=== PATIENT | male | born 1940 | race Caucasian/White ===

== ENCOUNTER 2018-08-08 15:18 | Observation (INO) | payer MEDICARE, OTHER ==
[2018-08-08 15:47] LABS: BASOPHILS # (AUTO) 0.1 10^3/uL (0.0-0.1); BASOPHILS % (AUTO) 0.7 %; EOSINOPHILS # (AUTO) 0.2 10^3/uL (0.0-0.7); EOSINOPHILS % (AUTO) 3.1 %; HGB - HEMOGLOBIN 14.8 g/dL (14.0-18.0); LYMPHOCYTES % (AUTO) 37.4 %; MEAN CORPUSCULAR HEMOGLOBIN 33.4 pg (27.0-31.0); MEAN CORPUSCULAR VOLUME 95.6 fL (80.0-94.0); MEAN PLATELET VOLUME 9.5 fL (7.4-11.4); MONOCYTES # (AUTO) 0.6 10^3/uL (0.0-1.0); MONOCYTES % (AUTO) 7.5 %; NEUTROPHILS # (AUTO) 4.1 10^3/uL (1.5-6.6); NEUTROPHILS % (AUTO) 51.3 %; PLT - PLATELET COUNT 161 10^3/uL (130-450); RED BLOOD COUNT 4.44 10^6/uL (4.70-6.10); RED CELL DISTRIBUTION WIDTH 13.8 % (12.0-15.0)
[2018-08-08 15:59] LABS: ALBUMIN 3.9 g/dL (3.2-5.5); ALBUMIN/GLOBULIN RATIO 1.3 (1.0-2.2); BILIRUBIN,TOTAL 1.7 mg/dL (0.2-1.0); CALCIUM 8.9 mg/dL (8.5-10.3); CREATININE 1.3 mg/dL (0.6-1.2); TOTAL PROTEIN 6.9 g/dL (6.7-8.2)
--- NOTE | 2018-08-08 15:59 | XRAY Report ---
Reason: chest pain Procedure Date: 08/08/2018 Accession Number: [id number] / [id number] Procedure: XR - Chest 2 View X-Ray CPT Code: 37293 FULL RESULT: EXAM: CHEST RADIOGRAPHY EXAM DATE: 08/08/2018 03:48 PM. CLINICAL HISTORY: Chest pain. COMPARISON: Chest radiograph dated 10/27/2013. TECHNIQUE: 2 views. FINDINGS: Lungs/Pleura: No focal opacities evident. No pleural effusion. No pneumothorax. Normal volumes. Mediastinum: Heart and mediastinal contours are unremarkable. Other: None. IMPRESSION: No focal consolidation. RADIA
--- NOTE | 2018-08-08 15:59 | ED Physician Documentation ---
PD HPI CHEST PAIN - Stated complaint Stated Complaint: CP/L ARM PX - Chief complaint Chief Complaint: Cardiac - History obtained from History obtained from: Patient - History of Present Illness Timing - onset: Yesterday (chest pains intermittent the past 2-3 days, more consistent since this morning. ccurring at rest, not exertional. Not pleuritic. In left chest, going to left shoulder.) Timing - onset during: Rest Timing - details: Gradual onset, Still present, Waxing and waning Quality: Pressure, Tightness, Aching. No: Sharp, Tearing Location: Left chest Radiation: Left upper extremity Improved by: No: Rest Worsened by: No: Exertion, Inspiration, Movement, Palpation Associated symptoms: No: Shortness of air, Diaphoresis, Nausea, Feeling faint / dizzy, Palpitations Similar symptoms before: Has not had sx before (He says he has a history of heart disease in the past and had seen a appeals and generalist clerk before moving here. He had been followed with echocardiograms. He denies any prior heart cath. He does not have any stents. He denies any chest pain episodes previously.) Recently seen: Not recently seen Review of Systems Constitutional: denies: Fever, Chills, Myalgias Nose: denies: Rhinorrhea / runny nose, Congestion Throat: denies: Sore throat Cardiac: reports: Chest pain / pressure. denies: Palpitations, Pedal edema, Calf pain Respiratory: denies: Dyspnea, Cough, Wheezing GI: denies: Abdominal Pain, Nausea, Vomiting Skin: denies: Rash, Lesions Musculoskeletal: denies: Neck pain, Back pain Neurologic: reports: Generalized weakness. denies: Focal weakness, Numbness, Near syncope PD PAST MEDICAL HISTORY - Past Medical History Cardiovascular: Hypertension, High cholesterol, Coronary artery disease (with prior ECHOs every year, but denies having had heart cath nor stents. ) Endocrine/Autoimmune: Type 2 diabetes - Past Surgical History Past Surgical History: Yes General: Appendectomy, Hiatal hernia repair Ortho: Spine surgery - Present Medications Home Medications: Ambulatory Orders Medication Instructions Recorded Confirmed Atorvastatin Calcium [Lipitor] 40 mg PO QPM 10/27/13 08/08/18 Carvedilol [Coreg] 25 mg PO BID 10/27/13 08/08/18 glipiZIDE [Glucotrol] 5 mg PO 0730,1630 10/27/13 08/08/18 Albuterol Sulfate [Proair Hfa 2 puffs INH Q4H PRN 08/08/18 08/08/18 Inhaler] Lisinopril/Hydrochlorothiazide 1 tab PO DAILY 08/08/18 08/08/18 [Lisinopril-Hctz 20-12.5 mg Tab] - Allergies Allergies/Adverse Reactions: Allergies Allergy/AdvReac Type Severity Reaction Status Date / Time No Known Drug Allergies Allergy Verified 08/08/18 15:23 - Social History Does the pt smoke?: No Smoking Status: Never smoker Does the pt drink ETOH?: No Does the pt have substance abuse?: No - Family History Family history: reports: Non contributory - Immunizations Immunizations are current?: Yes - POLST Patient has POLST: No PD ED PE NORMAL - Vitals Vital signs reviewed: Yes - General General: Alert and oriented X 3, No acute distress, Well developed/nourished - HEENT HEENT: Pharynx benign - Neck Neck: Supple, no meningeal sign, No adenopathy - Cardiac Cardiac: RRR, No murmur - Respiratory Respiratory: Clear bilaterally - Abdomen Abdomen: Normal bowel sounds, Soft, Non tender - Male Male : Deferred - Rectal Rectal: Deferred - Back Back: No CVA TTP - Derm Derm: Normal color, Warm and dry - Extremities Extremities: No deformity, No tenderness to palpate, Normal ROM s pain, No calf tenderness / cord, Other (1+ edema in both legs) - Neuro Neuro: Alert and oriented X 3 Eye Opening: Spontaneous Motor: Obeys Commands Results - Vitals Vitals: Vital Signs - 24 hr 08/08/18 08/08/18 08/08/18 15:21 15:57 16:55 Temperature 36.9 C Heart Rate 62 62 62 Respiratory 22 14 16 Rate Blood Pressure 143/65 H 143/81 H 160/88 H O2 Saturation 97 98 99 08/08/18 17:01 Temperature Heart Rate 68 Respiratory 16 Rate Blood Pressure 121/72 O2 Saturation 97 Oxygen O2 Source Room air - EKG (time done) 15:29 Rate: Rate (enter#) (60) Rhythm: NSR [place]: Normal Intervals: Normal MD QRS: Normal Ischemia: Normal ST segments. No: ST elevation c/w ischemia, ST depression - Labs Labs: Laboratory Tests 08/08/18 08/08/18 08/08/18 15:30 15:30 15:30 WBC 8.0 RBC 4.44 L Hgb 14.8 Hct 42.5 MCV 95.6 H MCH 33.4 H MCHC 35.0 RDW 13.8 Plt Count 161 MPV 9.5 Neut # (Auto) 4.1 Lymph # (Auto) 3.0 [place] # (Auto) 0.6 Eos # (Auto) 0.2 Baso # (Auto) 0.1 Absolute Nucleated RBC 0.00 Nucleated RBC % 0.0 Sodium 134 L Potassium 3.8 Chloride 102 Carbon Dioxide 27 Anion Gap 5.0 L BUN 24 H Creatinine 1.3 H Estimated GFR (MDRD) 54 L Glucose 100 Calcium 8.9 Total Bilirubin 1.7 H AST 29 ALT 30 Alkaline Phosphatase 86 Troponin I < 0.04 B-Natriuretic Peptide Total Protein 6.9 Albumin 3.9 Globulin 3.0 Albumin/Globulin Ratio 1.3 Lipase 28 08/08/18 15:30 WBC RBC Hgb Hct MCV MCH MCHC RDW Plt Count MPV Neut # (Auto) Lymph # (Auto) [place] # (Auto) Eos # (Auto) Baso # (Auto) Absolute Nucleated RBC Nucleated RBC % Sodium Potassium Chloride Carbon Dioxide Anion Gap BUN Creatinine Estimated GFR (MDRD) Glucose Calcium Total Bilirubin AST ALT Alkaline Phosphatase Troponin I B-Natriuretic Peptide 26 Total Protein Albumin Globulin Albumin/Globulin Ratio Lipase - Rads (name of study) chest xray Radiology: Prelim report reviewed PD MEDICAL DECISION MAKING - ED course Complexity details: reviewed results, re-evaluated patient (improved with NTG; had had just mild pain here initially and feels better.), considered differential (concern about ACS with chest pains episodic for few days then steady since late morning. ), d/w patient - Sepsis Event Vital Signs: Vital Signs - 24 hr 08/08/18 08/08/18 08/08/18 15:21 15:57 16:55 Temperature 36.9 C Heart Rate 62 62 62 Respiratory 22 14 16 Rate Blood Pressure 143/65 H 143/81 H 160/88 H O2 Saturation 97 98 99 08/08/18 17:01 Temperature Heart Rate 68 Respiratory 16 Rate Blood Pressure 121/72 O2 Saturation 97 Oxygen O2 Source Room air Departure - Departure Disposition: ED Place in Observation Clinical Impression: Chest pain, rule out acute myocardial infarction Condition: Stable Record reviewed to determine appropriate education?: Yes Discharge Date/Time: 08/08/18 18:45
[2018-08-08] MEDS ORDERED: NITROGLYCERIN SL 0.4 MG TABLET SL STA (16:48)
[2018-08-08] MEDS ORDERED: ASPIRIN CHEW 81 MG TABLET PO STA (16:48)
[2018-08-08] MEDS ORDERED: ACETAMINOPHEN 325 MG TABLET PO STA (16:48)
[2018-08-08] MEDS ORDERED: KETOROLAC 15 MG/ML VIAL IVP STA (16:48)
[2018-08-08] MEDS ORDERED: ONDANSETRON 4 MG/2 ML VIAL IVP PRN (17:37)
[2018-08-08] MEDS ORDERED: MORPHINE 2 MG/ML CARPUJECT IVP PRN (17:37)
[2018-08-08] MEDS ORDERED: NITROGLYCERIN SL 0.4 MG TABLET SL PRN (17:37)
[2018-08-08] MEDS ORDERED: SODIUM CHLORIDE FLUSH 0.9% 10 ML SYRINGE IVP PRN (17:37)
[2018-08-08] MEDS ORDERED: ZOLPIDEM 5 MG TABLET PO PRN (17:37)
[2018-08-08] MEDS ORDERED: ACETAMINOPHEN 325 MG TABLET PO PRN (17:37)
--- NOTE | 2018-08-08 17:43 | HISTORY & PHYSICAL EXAMINATION ---
Chief Complaint - Chief Complaint Chief Complaint: Chest pain History of Present Illness - Admitted From Admitted From:: Emergency Department - History Obtained From Records Reviewed: Yes History obtained from: Patient Exam Limitations: None - History of Present Illness HPI Comment/Other: Patient is a 77-year-old gentleman with a past medical history significant for diabetes, hypertension, hyperlipidemia, glaucoma and obesity who presented to the emergency department with a chief complaint of chest pain. The patient st ates that the chest pain initially started yesterday evening. The patient states that he was having left-sided chest pain radiating down his left arm. He states that it would only last for 2 or 3 minutes and then resolve on its own. He states he had 4 episodes of pain like this yesterday evening but since it resolved he did not make too much of it. He states that he woke up this morning and he did not have any chest pain until around 11:30 AM. He states that that time he began having a similar pain in the left side of his chest radiating down his left arm. He states initially the pain resolved but then started up again every 5 minutes and then lasted for a few minutes and would resolve. Eventually the pain became persistent and was not going away on its own. At this point the patient became concerned and decided to come to the emergency department. The patient denies any nausea or diaphoresis associated to the pain. Patient did not take anything before arriving to the emergency department for the pain. The patient does state that once he got to the emergency department that the nitroglycerin and aspirin did help his pain. The patient also states he has been having a headache and has history of neck pain. The patient denies any palpitations or shortness of breath. He describes the pain as a mild pressure which is about a 3 out of 10 on the pain scale. The patient has had a stress test here at [facility] in 2013 which was negative. The patient has no history of coronary artery disease and no family history of coronary artery disease. The patient is a non-smoker. The patient denies any blurred vision, runny nose, sore throat, nasal conges tion, difficulty swallowing, orthopnea, PND, increased lower extremity swelling, joint pain, urinary urgency, urinary frequency, dysuria, abdominal pain, nausea, vomiting, diarrhea, cough, fevers, chills, neck stiffness, recent unintentional weight loss, changes in his appetite, night sweats, hair loss, skin rash, polyuria, polydipsia or any focal neurologic deficits. On presentation to the emergency department the patient was afebrile and slightly hypertensive otherwise vital signs were within normal limits. The patient initially was underwent an EKG the EKG showed no ST elevation and no is chemic changes. The patient underwent routine lab work including troponin which was negative. The patient did have a slightly elevated creatinine of 1.3 which was near his baseline of 1.2. The patient also had a mild hyponatremia. The patient's BNP was 26. Patient had no leukocytosis. The patient did undergo a chest x-ray which showed no focal consolidation. Given the patient's risk factors he was placed in observation for rule out of acute coronary syndrome. History - Past Medical History Cardiovascular: reports: Hypertension, High cholesterol, Other (Obesity) Endocrine/Autoimmune: reports: Type 2 diabetes HEENT: reports: Glaucoma - Past Surgical History General: reports: Appendectomy, Hiatal hernia repair Ortho: reports: Spine surgery - Family & Social History Family History: Mother: (Patient's father of liver failure and mother of breast cancer), Cancer (Breast cancer), Father: , Other family: Diabetes, Type 2 (Both grandmothers had diabetes) Living arrangement: At home Living Situation: Alone Social History Notes: The patient lives alone in [place]. He is . He is originally from [place] and moved would be [place] in 2011. He has 1 son who also lives in [place]. He is fully independent and still drives he does use a cane at home. 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 The patient has a masters degree. He has never smoked, does not drink alcohol and denies any illicit drug use. - POLST Patient has POLST: No POLST Status: Full Code Meds/Allgy - Home Medications Home Medications: Ambulatory Orders Medication Instructions Recorded Confirmed Atorvastatin Calcium [Lipitor] 40 mg PO QPM 10/27/13 08/08/18 Carvedilol [Coreg] 25 mg PO BID 10/27/13 08/08/18 glipiZIDE [Glucotrol] 5 mg PO 0730,1630 10/27/13 08/08/18 Albuterol Sulfate [Proair Hfa 2 puffs INH Q4H PRN 08/08/18 08/08/18 Inhaler] Lisinopril/Hydrochlorothiazide 1 tab PO DAILY 08/08/18 08/08/18 [Lisinopril-Hctz 20-12.5 mg Tab] - Allergies Allergies/Adverse Reactions: Allergies Allergy/AdvReac Type Severity Reaction Status Date / Time No Known Drug Allergies Allergy Verified 08/08/18 15:23 Review of Systems - Other Findings Other Findings: A comprehensive review of systems was performed the pertinent positives and negatives are stated above in the HPI and the remainder of the review of systems is negative. Prior Level of Functionality: Patient is fully functioning and independent. He does use a cane at home but otherwise is still driving, cooking for himself, paying his own bills but does get help cleaning the house. Exam - Vital Signs Reviewed Vital Signs: Yes Vital Signs: Vital Signs x48h Temp Pulse Resp BP Pulse Ox 08/08/18 17:01 68 16 121/72 97 08/08/18 16:55 62 16 160/88 H 99 08/08/18 15:57 62 14 143/81 H 98 08/08/18 15:21 36.9 C 62 22 143/65 H 97 - Physical Exam General Appearance: positive: No acute distress, Alert Eyes Bilateral: positive: Normal inspection, PERRL, EOMI, No lid inflammation, Conjunctivae nml, No scleral icterus ENT: positive: ENT inspection nml, Pharynx nml, No signs of dehydration. negative: Purulent nasal drainage, Pharyngeal erythema, Oral lesions Neck: positive: Nml inspection, Thyroid nml, No JVD, Trachea midline. negative: Lymphadenopathy (R), Lymphadenopathy (L), Stiff neck, Carotid bruit, Tracheal deviation Respiratory: positive: Chest non-tender, No respiratory distress, Breath sounds nml. negative: Wheezes, Rales, Rhonchi Cardiovascular: positive: Regular rate & rhythm, No murmur, No gallop Peripheral Pulses: positive: 2+ Abdomen: positive: Non-tender, No organomegaly, Nml bowel sounds, No distention. negative: Guarding, Rebound, Hepatomegaly Back: positive: Nml inspection. negative: CVA tenderness (R), CVA tenderness (L) Skin: positive: Color nml, No rash, Warm, Dry. negative: Cyanosis, Diaphoresis, Pallor Extremities: positive: Non-tender, Full ROM, Nml appearance, No pedal edema Neurologic/Psychiatric: positive: Oriented x3, CN's nml (2-12), Motor nml, Sensation nml, Mood/affect nml Conclusion/Plan - Problem List (1) Chest pain Conclusion/Plan: Patient presented with left-sided chest pain that was going on off and on since yesterday and then became persistent earlier this afternoon. It was radiating to the left arm. The patient had no associated nausea, diaphoresis, shortness of breath or palpitations. Patient's pain was relieved by aspirin and nitroglycerin in the emergency department. The pain did occur at rest. The patient's initial EKG and troponin were negative. Given the patient's risk factors of diabetes, age, hypertension, hyperlipidemia and obesity the patient was placed in observation for acute coronary syndrome rule out. Plan: Serial troponins x3 Telemetry monitoring Nitroglycerin when necessary for chest pain Aspirin Lipitor Echo If patient does rule out we would recommend an outpatient stress test given his risk factors. (2) Hypertension Conclusion/Plan: Patient is a history of hypertension and on presentation to the emergency department the patient's blood pressure is slightly elevated. The patient will be continued on his home antihypertensive medications. We will continue to mo nitor his blood pressure and titrate medications as needed. Qualifiers: Hypertension type: essential hypertension Qualified Code(s): I10 - Essen tial (primary) hypertension (3) Hyperlipidemia Conclusion/Plan: Patient has a history of hyperlipidemia and takes a statin at home. Patient will be continued on statin while he is hospitalized. We will check a lipid profile in the morning. Qualifiers: Hyperlipidemia type: unspecified Qualified Code(s): E78.5 - Hyperlipidemia, unspecified (4) Diabetes mellitus Conclusion/Plan: Patient has a history of diabetes and is on glipizide at home. Patient's blood glucose is well controlled on presentation to the emergency department. Plan: Patient will be placed on sliding scale insulin Diabetic diet Hemoglobin A1c Check blood glucose before meals at bedtime Qualifiers: Diabetes mellitus type: type 2 Diabetes mellitus senior care insulin use: without superintendent container terminal use Diabetes mellitus complication status: without complication Qualified Code(s): E11.9 - Type 2 diabetes mellitus without complications (5) Hyponatremia Conclusion/Plan: Patient has mild hyponatremia with a sodium of 134. Patient appears to have hypovolemic hyponatremia. Patient's BUN and creatinine are also slightly elevated. We will give the patient IV fluids and monitor his sodium. (6) Elevated bilirubin Conclusion/Plan: Patient has a mildly elevated bilirubin of 1.7. Looking back at his labs from 2012 his bilirubin was 1.7 then as well. Given the patient's LFTs are otherwise normal and he is not having any symptoms to suggest liver disease we will just monitor his bilirubin. - Lab Results Lab results reviewed: Yes Fish Bones: 08/08/18 15:30 08/08/18 15:30 Other Lab Results: Laboratory Results WBC 8.0 x10^3/uL (4.8-10.8) 08/08/18 15:30 RBC 4.44 10^6/uL (4.70-6.10) L 08/08/18 15:30 Hgb 14.8 g/dL (14.0-18.0) 08/08/18 15:30 Hct 42.5 % (42.0-52.0) 08/08/18 15:30 MCV 95.6 fL (80.0-94.0) H 08/08/18 15:30 MCH 33.4 pg (27.0-31.0) H 08/08/18 15:30 MCHC 35.0 g/dL (32.0-36.0) 08/08/18 15:30 RDW 13.8 % (12.0-15.0) 08/08/18 15:30 Plt Count 161 10^3/uL (130-450) 08/08/18 15:30 MPV 9.5 fL (7.4-11.4) 08/08/18 15:30 Neut # (Auto) 4.1 10^3/uL (1.5-6.6) 08/08/18 15:30 Lymph # (Auto) 3.0 10^3/uL (1.5-3.5) 08/08/18 15:30 [place] # (Auto) 0.6 10^3/uL (0.0-1.0) 08/08/18 15:30 Eos # (Auto) 0.2 10^3/uL (0.0-0.7) 08/08/18 15:30 Baso # (Auto) 0.1 10^3/uL (0.0-0.1) 08/08/18 15:30 Absolute Nucleated RBC 0.00 x10^3/uL 08/08/18 15:30 Nucleated RBC % 0.0 /100WBC 08/08/18 15:30 Sodium 134 mmol/L (135-145) L 08/08/18 15:30 Potassium 3.8 mmol/L (3.5-5.0) 08/08/18 15:30 Chloride 102 mmol/L (101-111) 08/08/18 15:30 Carbon Dioxide 27 mmol/L (21-32) 08/08/18 15:30 Anion Gap 5.0 (6-13) L 08/08/18 15:30 BUN 24 mg/dL (6-20) H 08/08/18 15:30 Creatinine 1.3 mg/dL (0.6-1.2) H 08/08/18 15:30 Estimated GFR (MDRD) 54 (>89) L 08/08/18 15:30 Glucose 100 mg/dL (70-100) 08/08/18 15:30 Calcium 8.9 mg/dL (8.5-10.3) 08/08/18 15:30 Total Bilirubin 1.7 mg/dL (0.2-1.0) H 08/08/18 15:30 AST 29 IU/L (10-42) 08/08/18 15:30 ALT 30 IU/L (10-60) 08/08/18 15:30 Alkaline Phosphatase 86 IU/L (42-121) 08/08/18 15:30 Troponin I < 0.04 ng/mL (<0.49) 08/08/18 15:30 B-Natriuretic Peptide 26 pg/mL (5-100) 08/08/18 15:30 Total Protein 6.9 g/dL (6.7-8.2) 08/08/18 15:30 Albumin 3.9 g/dL (3.2-5.5) 08/08/18 15:30 Globulin 3.0 g/dL (2.1-4.2) 08/08/18 15:30 Albumin/Globulin Ratio 1.3 (1.0-2.2) 08/08/18 15:30 Lipase 28 U/L (22-51) 08/08/18 15:30 - Diagnostic Imaging Results Diagnostic Imaging Results: positive: Final report reviewed Diagnostic Imaging Results Comments: Chest x-ray Impression: No focal consolidation - EKG Results EKG Interpreted Independently: Yes EKG Findings: No ST elevations or ischemic changes noted on EKG. Core Measures - Anticipated LOS I expect patient to be DC'd or transferred within 96 hours.: Yes - DVT/VTE - Prophylaxis VTE/DVT Prophylaxis med ordered at admit?: Yes
[2018-08-08] MEDS: SODIUM CHLORIDE FLUSH 0.9% 10 ML SYRINGE IVP SCH (19:32)
[2018-08-08] MEDS: SODIUM CHLORIDE 0.9% 1,000 ML IV SCH (19:33)
[2018-08-08] MEDS: CARVEDILOL 12.5 MG TABLET PO SCH (20:48)
[2018-08-08] MEDS: HEPARIN 5,000 UNIT/ML VIAL SUBQ SCH (20:49)
[2018-08-08] MEDS ORDERED: ATORVASTATIN 40 MG TABLET PO SCH (21:00)
[2018-08-08] MEDS: INSULIN ASPART 300 UNIT/3 ML PEN SUBQ SCH (21:18)
[2018-08-09 05:07] LABS: BASOPHILS # (AUTO) 0.1 10^3/uL (0.0-0.1); EOSINOPHILS # (AUTO) 0.2 10^3/uL (0.0-0.7); HGB - HEMOGLOBIN 13.3 g/dL (14.0-18.0); LYMPHOCYTES # (AUTO) 2.7 10^3/uL (1.5-3.5); LYMPHOCYTES % (AUTO) 40.9 %; MEAN CORPUSCULAR HEMOGLOBIN 33.3 pg (27.0-31.0); MEAN CORPUSCULAR VOLUME 95.3 fL (80.0-94.0); MEAN PLATELET VOLUME 9.7 fL (7.4-11.4); MONOCYTES # (AUTO) 0.5 10^3/uL (0.0-1.0); MONOCYTES % (AUTO) 8.3 %; NEUTROPHILS # (AUTO) 3.1 10^3/uL (1.5-6.6); NEUTROPHILS % (AUTO) 46.8 %; PLT - PLATELET COUNT 144 10^3/uL (130-450); RED CELL DISTRIBUTION WIDTH 13.5 % (12.0-15.0); WHITE BLOOD COUNT 6.6 x10^3/uL (4.8-10.8)
[2018-08-09 05:19] LABS: ALBUMIN 3.1 g/dL (3.2-5.5); ALBUMIN/GLOBULIN RATIO 1.3 (1.0-2.2); ALKALINE PHOSPHATASE 65 IU/L (42-121); ALT ALANINE AMINOTRANSFERASE 26 IU/L (10-60); AST ASPARTATE AMINOTRANSFERASE 24 IU/L (10-42); BILIRUBIN,TOTAL 1.5 mg/dL (0.2-1.0); BUN - BLOOD UREA NITROGEN 26 mg/dL (6-20); CALCIUM 8.1 mg/dL (8.5-10.3); CARBON DIOXIDE - CO2 25 mmol/L (21-32); CHLORIDE 104 mmol/L (101-111); CHOL/HDL RATIO 4.5 (<5.0); CHOLESTEROL 104 mg/dL; CREATININE 1.4 mg/dL (0.6-1.2); GFR - MDRD 49 (>89); GLUCOSE 111 mg/dL (70-100); HDL CHOLESTEROL 23 mg/dL; LDL CHOLESTEROL,CALCULATED 60 mg/dL; LDL/HDL RATIO 2.6 (<3.6); SODIUM 135 mmol/L (135-145); TOTAL PROTEIN 5.5 g/dL (6.7-8.2); VLDL CHOLESTEROL 21 mg/dL
[2018-08-09] MEDS: SODIUM CHLORIDE 0.9% 1,000 ML IV SCH (05:45)
[2018-08-09 05:53] LABS: HB2 TOTAL 13.9 g/dL; HEMOGLOBIN A1C 0.63 g/dL; HEMOGLOBIN A1C % 6.3 % (4.6-6.2)
[2018-08-09] MEDS: INSULIN ASPART 300 UNIT/3 ML PEN SUBQ SCH (08:29)
[2018-08-09] MEDS: CARVEDILOL 12.5 MG TABLET PO SCH (08:29)
[2018-08-09] MEDS: HEPARIN 5,000 UNIT/ML VIAL SUBQ SCH (08:29)
[2018-08-09] MEDS: SODIUM CHLORIDE FLUSH 0.9% 10 ML SYRINGE IVP SCH (08:30)
[2018-08-09] MEDS ORDERED: LISINOPRIL PO SCH (09:00)
[2018-08-09] MEDS ORDERED: HYDROCHLOROTHIAZIDE PO SCH (09:00)
[2018-08-09] MEDS ORDERED: FAMOTIDINE 20 MG TABLET PO SCH (09:00)
[2018-08-09] MEDS ORDERED: POLYETHYLENE GLYCOL 3350 17 GM PACKET PO SCH (09:00)
[2018-08-09] MEDS ORDERED: ASPIRIN EC 81 MG TABLET PO SCH (09:00)
[2018-08-09] MEDS ORDERED: [UNRECOGNIZED DRUG - OTHER] PO SCH (09:00)
[2018-08-09 09:49] VITALS: BP 115/60
--- NOTE | 2018-08-09 10:29 | Discharge Plan ---
Discharge Plan Disposition: 01 Home, Self Care Condition: Stable Diet: Diabetic Activity Restrictions: Activity as Tolerated Shower Restrictions: No Driving Restrictions: No Assistance Devices: Cane Weight Bearing: Full Weight Additional Instructions or Follow Up instructions: You came to the emergency department because you were having left-sided chest pain that was radiating into her left arm. It has been ongoing since the day prior to ER presentation to the ER. While you were here we performed an EKG, an echocardiogram and did blood work which all determined that you are not having an acute heart attack. You will be safe to go home at this time. I recommend that you follow-up with your primary care physician and get a stress test. 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 No Smoking: If you smoke, Please STOP! Call for help. Follow-up with: Jordin Wheeler MD [Primary Care Provider] -
--- NOTE | 2018-08-09 10:34 | DISCHARGE SUMMARY ---
Discharge Summary Admit Date: 08/08/18 Discharge Date: 08/09/18 Discharging Provider: Gwyn Kim MD Primary Care Provider: Jordin Wheeler MD Code Status: Attempt Resuscitation Condition at Discharge: Stable Discharge Disposition: 01 Home, Self Care - DIAGNOSES Admission Diagnoses: 1. Chest pain 2. Hypertension 3. Hyperlipidemia 4. Diabetes mellitus 5. Hyponatremia 6. Elevated bilirubin Discharge Diagnoses with Status of Each Condition: 1. Chest pain: Resolved 2. Hypertension: Stable 3. Hyperlipidemia: Stable 4. Diabetes mellitus: Stable 5. Hyponatremia: Resolved 6. Elevated bilirubin: Stable - HPI History of Present Illness: Patient is a 77-year-old gentleman with a past medical history significant for diabetes, hypertension, hyperlipidemia, glaucoma and obesity who presented to the emergency department with a chief complaint of chest pain. The patient states that the chest pain initially started yesterday evening. The patient states that he was having left-sided chest pain radiating down his left arm. He states that it would only last for 2 or 3 minutes and then resolve on its own. He states he had 4 episodes of pain like this yesterday evening but since it resolved he did not make too much of it. He states that he woke up this morning and he did not have any chest pain until around 11:30 AM. He states that that time he began having a similar pain in the left side of his chest radiating down his left arm. He states initially the pain resolved but then started up again every 5 minutes and then lasted for a few minutes and would resolve. Eventually the pain became persistent and was not going away on its own. At this point the patient became concerned and decided to come to the emergency department. The patient denies any nausea or diaphoresis associated to the pain. Patient did not take anything before arriving to the emergency department for the pain. The patient does state that once he got to the emergency department that the ni troglycerin and aspirin did help his pain. The patient also states he has been having a headache and has history of neck pain. The patient denies any palpitations or shortness of breath. He describes the pain as a mild pressure which is about a 3 out of 10 on the pain scale. The patient has had a stress test here at [facility] in 2013 which was negative. The patient has no history of coronary artery disease and no family history of coronary artery disease. The patient is a non-smoker. The patient denies any blurred vision, runny nose, sore throat, nasal congestion, difficulty swallowing, orthopnea, PND, increased lower extremity swelling, joint pain, urinary urgency, urinary frequency, dysuria, abdominal pain, nausea, vomiting, diarrhea, cough, fevers, chills, neck stiffness, recent unintentional weight loss, changes in his appetite, night sweats, hair loss, ski n rash, polyuria, polydipsia or any focal neurologic deficits. On presentation to the emergency department the patient was afebrile and slightly hypertensive otherwise vital signs were within normal limits. The patient initially was underwent an EKG the EKG showed no ST elevation and no ischemic changes. The patient underwent routine lab work including troponin which was negative. The patient did have a slightly elevated creatinine of 1.3 which was near his baseline of 1.2. The patient also had a mild hyponatremia. The patient's BNP was 26. Patient had no leukocytosis. The patient did undergo a chest x-ray which showed no focal consolidation. Given the patient's risk factors he was placed in observation for rule out of acute coronary syndrome. - HOSPITAL COURSE Hospital Course: Patient was placed in observation and underwent telemetry monitoring and serial troponins. The patient had 3 negative troponins. The patient's chest pain resolved and he had no further occurrences of chest pain while he was hospitalized. The patient also had an echocardiogram done which showed no wall motion abnormality and a normal ejection fraction with grade 1 diastolic dysfunction. The patient remained in stable condition and was discharged home. The patient was advised to follow-up with his primary care physician for an elective stress test given his multiple risk factors. - ALLERGIES Allergies/Adverse Reactions: Allergies Allergy/AdvReac Type Severity Reaction Status Date / Time No Known Drug Allergies Allergy Verified 08/08/18 15:23 - MEDICATIONS Home Medications: Ambulatory Orders Medication Instructions Recorded Confirmed Atorvastatin Calcium [Lipitor] 40 mg PO QPM 10/27/13 08/08/18 Carvedilol [Coreg] 25 mg PO BID 10/27/13 08/08/18 glipiZIDE [Glucotrol] 5 mg PO 0730,1630 10/27/13 08/08/18 Albuterol Sulfate [Proair Hfa 2 puffs INH Q4H PRN 08/08/18 08/08/18 Inhaler] Lisinopril/Hydrochlorothiazide 1 tab PO DAILY 08/08/18 08/08/18 [Lisinopril-Hctz 20-12.5 mg Tab] - PHYSICAL EXAM AT DISCHARGE General Appearance: positive: No acute distress, Alert Eyes Bilateral: positive: Normal inspection, PERRL, EOMI, No lid inflammation, Conjunctivae nml, No scleral icterus ENT: positive: ENT inspection nml, Pharynx nml, No signs of dehydration. negative: Purulent nasal drainage, Pharyngeal erythema, Oral lesions Neck: positive: Nml inspection, Thyroid nml, No JVD, Trachea midline. negative: Lymphadenopathy (R), Lymphadenopathy (L), Stiff neck, Carotid bruit, Tracheal deviation Respiratory: positive: Chest non-tender, No respiratory distress, Breath sounds nml. negative: Wheezes, Rales, Rhonchi Cardiovascular: positive: Regular rate & rhythm, No murmur, No gallop Peripheral Pulses: positive: 2+ Abdomen: positive: Non-tender, No organomegaly, Nml bowel sounds, No distention. negative: Guarding, Rebound, Hepatomegaly Back: positive: Nml inspection. negative: CVA tenderness (R), CVA tenderness (L) Skin: positive: Color nml, No rash, Warm. negative: Dry, Cyanosis, Diaphoresis, Pallor Extremities: positive: Non-tender, Full ROM, Nml appearance, Pedal edema Neurologic/Psychiatric: positive: Oriented x3, CN's nml (2-12), Motor nml, Sensation nml, Mood/affect nml - LABS Result Diagrams: 08/09/18 04:45 08/09/18 04:45 Other Lab Results: Laboratory Results WBC 6.6 x10^3/uL (4.8-10.8) 08/09/18 04:45 RBC 4.00 10^6/uL (4.70-6.10) L 08/09/18 04:45 Hgb 13.3 g/dL (14.0-18.0) L 08/09/18 04:45 Hct 38.1 % (42.0-52.0) L 08/09/18 04:45 MCV 95.3 fL (80.0-94.0) H 08/09/18 04:45 MCH 33.3 pg (27.0-31.0) H 08/09/18 04:45 MCHC 35.0 g/dL (32.0-36.0) 08/09/18 04:45 RDW 13.5 % (12.0-15.0) 08/09/18 04:45 Plt Count 144 10^3/uL (130-450) 08/09/18 04:45 MPV 9.7 fL (7.4-11.4) 08/09/18 04:45 Neut # (Auto) 3.1 10^3/uL (1.5-6.6) 08/09/18 04:45 Lymph # (Auto) 2.7 10^3/uL (1.5-3.5) 08/09/18 04:45 [place] # (Auto) 0.5 10^3/uL (0.0-1.0) 08/09/18 04:45 Eos # (Auto) 0.2 10^3/uL (0.0-0.7) 08/09/18 04:45 Baso # (Auto) 0.1 10^3/uL (0.0-0.1) 08/09/18 04:45 Absolute Nucleated RBC 0.00 x10^3/uL 08/09/18 04:45 Nucleated RBC % 0.1 /100WBC 08/09/18 04:45 Sodium 135 mmol/L (135-145) 08/09/18 04:45 Potassium 3.7 mmol/L (3.5-5.0) 08/09/18 04:45 Chloride 104 mmol/L (101-111) 08/09/18 04:45 Carbon Dioxide 25 mmol/L (21-32) 08/09/18 04:45 Anion Gap 6.0 (6-13) 08/09/18 04:45 BUN 26 mg/dL (6-20) H 08/09/18 04:45 Creatinine 1.4 mg/dL (0.6-1.2) H 08/09/18 04:45 Estimated GFR (MDRD) 49 (>89) L 08/09/18 04:45 Glucose 111 mg/dL (70-100) H 08/09/18 04:45 POC Whole Bld Glucose 129 mg/dL (70 - 100) H 08/08/18 21:00 Glycated Hemoglobin 6.3 % (4.6-6.2) H 08/09/18 04:45 Estim Average Glucose 134 (70-100) H 08/09/18 04:45 Calcium 8.1 mg/dL (8.5-10.3) L 08/09/18 04:45 Total Bilirubin 1.5 mg/dL (0.2-1.0) H 08/09/18 04:45 AST 24 IU/L (10-42) 08/09/18 04:45 ALT 26 IU/L (10-60) 08/09/18 04:45 Alkaline Phosphatase 65 IU/L (42-121) 08/09/18 04:45 Troponin I < 0.04 ng/mL (<0.49) 08/09/18 04:45 B-Natriuretic Peptide 32 pg/mL (5-100) 08/09/18 04:45 Total Protein 5.5 g/dL (6.7-8.2) L 08/09/18 04:45 Albumin 3.1 g/dL (3.2-5.5) L 08/09/18 04:45 Globulin 2.4 g/dL (2.1-4.2) 08/09/18 04:45 Albumin/Globulin Ratio 1.3 (1.0-2.2) 08/09/18 04:45 Triglycerides 104 mg/dL (-149) 08/09/18 04:45 Cholesterol 104 mg/dL (-199) 08/09/18 04:45 LDL Cholesterol, Calc 60 mg/dL (-129) 08/09/18 04:45 VLDL Cholesterol 21 mg/dL 08/09/18 04:45 HDL Cholesterol 23 mg/dL (60-) L 08/09/18 04:45 LDL/HDL Ratio 2.6 (<3.6) 08/09/18 04:45 Cholesterol/HDL Ratio 4.5 (<5.0) 08/09/18 04:45 Lipase 28 U/L (22-51) 08/08/18 15:30 - DIAGNOSTIC IMAGING Diagnostic Imaging Results: Final report reviewed Diagnostic Imaging Results Comments: Chest x-ray Impression: No focal consolidation Echocardiogram Impression: Left ventricular size is normal. Left ventricular wall thickness is normal. Overall left ventricular systolic function is normal with an ejection fraction of 55-60%. Impaired relaxation consistent with grade 1 diastolic dysfunction. No regional wall motion abnormalities are seen. The right ventricle is normal in size and function. The left atrial volume index is normal. Mild right atrial enlargement. The aortic valve is trileaflet. There is mild aortic valve sclerosis. There is no evidence of aortic stenosis. There is no evidence of aortic regurgitation. The mitral valve is normal. No mitral stenosis noted. There is trace to mild mitral regurgitation. The tricuspid valve appears structurally normal. No tricuspid stenosis noted. Mild tricuspid regurgitation. Normal right ventricular systolic pressure less than 35 mmHg. The pulmonic valve is normal. No significant pulmonic regurgitation noted. There is no pulmonic stenosis noted. There is no pericardial effusion noted. There is an adipose layer noted in the pericardium. The intra-atrial septum appears normal. The ascending aorta is dilated measuring up to 3.9 cm. The mid pulmonary artery is normal. The inferior vena cava is normal with a greater than 50% inspiratory collapse which is suggestive of a right atrial pressure of 3 mmHg. No mass or thrombus identified. There is no pleural effusion noted. - FOLLOW UP Follow Up: Patient was placed in observation for chest pain given his multiple risk factors for acute coronary syndrome. The patient had negative troponins, normal EKG and unremarkable echocardiogram. Patient had no events on telemetry and his chest pain was completely resolved. The patient was discharged home and is to follow- up with his primary care physician for an elective stress test given his risk factors. - TIME SPENT Time Spent in Discharge (Minutes): 40
== END 2018-08-09 10:58 | disposition home or self-care (01) ==
LOC: ED 15:18 → MS3 17:37
PROVIDERS: ADMIT Internal Medicine; ATTEND Internal Medicine
DX: R07.9 Chest pain, unspecified (principal); M79.602 Pain in left arm; I11.9 Hypertensive heart disease without heart failure; E78.5 Hyperlipidemia, unspecified; E11.9 Type 2 diabetes mellitus without complications; E87.1 Hypo-osmolality and hyponatremia; E66.9 Obesity, unspecified; R79.89 Other specified abnormal findings of blood chemistry; M19.019 Primary osteoarthritis, unspecified shoulder; M47.9 Spondylosis, unspecified; Z79.899 Other long term (current) drug therapy; Z79.84 Long term (current) use of oral hypoglycemic drugs; Z68.35 Body mass index [BMI] 35.0-35.9, adult
CPT/HCPCS: 36415; 71046; 80053; 80061; 83036; 83690; 83880; 84484; 85025; 93005; 93306; 96361; 96374; 99284; A9270; G0378; 83721; 99283

== ENCOUNTER 2019-03-26 09:46 | Outpatient (CLI) | payer MEDICARE, OTHER ==
[2019-03-26] MEDS ORDERED: AMINOPHYLLINE 250 MG/10 ML VIAL ONE (10:48)
[2019-03-26] MEDS ORDERED: REGADENOSON 0.4 MG/5 ML SYRINGE IVP ONE ×2 (10:48→12:34)
--- NOTE | 2019-03-26 15:06 | CARDIAC PROCEDURE NOTE ---
DATE OF SERVICE: 03/26/2019 Physician: Cynthia Alvarez MD, [facility] INDICATIONS: Exertional dyspnea. CARDIAC RISK FACTORS: Male gender, advanced age, obesity, elevated cholesterol, diabetes, hypertension. PROCEDURE: After signing informed consent, patient underwent a Lexiscan pharmaceutical stress test with nuclear myocardial perfusion imaging. RESTING HEART RATE: 63. PEAK HEART RATE: 85. RESTING BLOOD PRESSURE: 142/75. PEAK BLOOD PRESSURE: 150/82. Lexiscan was infused per protocol. Patient had brief shortness of breath and a headache, no other symptoms. Oxygen saturation was 95-98% throughout the entire test. RESTING EKG: Normal sinus rhythm, rate 63, first-degree AV block, left atrial enlargement, incomplete right bundle branch block, LAFB. EKG AT PEAK: New frequent PVCs, several runs of ventricular bigeminy, no new ST segment or T-wave changes. SUMMARY 1. Abnormal resting EKG. 2. Borderline changes for ischemia on this pharmaceutical stress test. 3. Nuclear images reported separately. cc: Jordin Wheeler MD TD: 03/26/2019 14:27 [facility]
--- NOTE | 2019-03-27 13:10 | Nuclear Medicine Report ---
Reason: EXERTIONAL DYSPNEA Procedure Date: 03/26/2019 Accession Number: [id number] / [id number] Procedure: NM - Myocardial Perfusion STR/RST CPT Code: FULL RESULT: EXAM: SINGLE-ISOTOPE PHARMACOLOGICAL STRESS TEST WITH REGADENOSON. SINGLE-ISOTOPE AND ONE-DAY REST/STRESS MYOCARDIAL PERFUSION SCANS WITH TOMOGRAPHIC IMAGING, QUANTITATIVE ANALYSIS, WALL MOTION ANALYSIS AND CALCULATION OF EJECTION FRACTION. EXAM DATE: 03/26/2019 11:07 AM. CLINICAL HISTORY: EXERTIONAL DYSPNEA. COMPARISON: None. TECHNIQUE: After the intravenous administration of 10.6 mCi of Tc-99m sestamibi, a rest myocardial perfusion scan was done with tomography. Motion correction was applied when appropriate. After an appropriate delay, pharmacological stress was performed with the infusion of 0.4 mg regadenoson per protocol. According to protocol, 44.7 mCi of Tc-99m sestamibi was injected for stress myocardial perfusion scan. Motion correction was applied when appropriate. Gated tomographic images were obtained for wall motion analysis and computation of left ventricular ejection fraction. FINDINGS: Perfusion images: Left ventricular chamber size appears normal at rest and mildly increased at stress. No convincing fixed perfusion deficits. There is a reversible large size, moderate severity perfusion deficit involving the apical half of the anterior/anteroseptal wall and apex. There is a reversible small size mild to moderate severity perfusion deficit involving the apical half of the inferior wall. SSS 26, SRS 8, SDS 16. Gated images: There is evidence of mild apical third anterior wall hypokinesis. Calculated left ventricular EDV 120 mL, ESV 37 mL. The left ventricular ejection fraction is estimated at 69% (normal > 50%). IMPRESSION: 1. Reversible large size, moderate severity anterior/anteroseptal wall and apical perfusion deficit and small size, mild to moderate severity inferior wall perfusion deficit, suggestive of stress-induced ischemia. 2. No convincing fixed perfusion deficits. 3. Left ventricular ejection fraction of 69% (normal > 50%). Please correlate findings with stress ECG tracings and procedure notes. [facility]
== END 2019-03-26 09:47 | disposition home or self-care (01) ==
LOC: DI 09:46
PROVIDERS: ATTEND Internal Medicine
DX: R06.00 Dyspnea, unspecified (principal); R94.31 Abnormal electrocardiogram [ECG] [EKG]; E66.9 Obesity, unspecified; E11.9 Type 2 diabetes mellitus without complications; I10 Essential (primary) hypertension
CPT/HCPCS: 78452; 93017; A9500; J2785

== ENCOUNTER 2020-01-04 08:02 | Outpatient (CLI) | payer MEDICARE, OTHER ==
[2020-01-04 08:17] LABS: BASOPHILS # (AUTO) 0.1 10^3/uL (0.0-0.1); BASOPHILS % (AUTO) 1.1 %; EOSINOPHILS # (AUTO) 0.2 10^3/uL (0.0-0.7); EOSINOPHILS % (AUTO) 2.8 %; HGB - HEMOGLOBIN 14.9 g/dL (14.0-18.0); LYMPHOCYTES # (AUTO) 2.3 10^3/uL (1.5-3.5); LYMPHOCYTES % (AUTO) 35.1 %; MEAN CORPUSCULAR HEMOGLOBIN 33.5 pg (27.0-31.0); MEAN CORPUSCULAR HGB CONC 34.5 g/dL (32.0-36.0); MEAN CORPUSCULAR VOLUME 97.1 fL (80.0-94.0); MEAN PLATELET VOLUME 10.3 fL (7.4-11.4); MONOCYTES # (AUTO) 0.5 10^3/uL (0.0-1.0); MONOCYTES % (AUTO) 7.4 %; NEUTROPHILS # (AUTO) 3.5 10^3/uL (1.5-6.6); NEUTROPHILS % (AUTO) 53.3 %; PLT - PLATELET COUNT 144 10^3/uL (130-450); RED BLOOD COUNT 4.45 10^6/uL (4.70-6.10); RED CELL DISTRIBUTION WIDTH 13.2 % (12.0-15.0); WHITE BLOOD COUNT 6.5 x10^3/uL (4.8-10.8)
[2020-01-04 08:44] LABS: BUN - BLOOD UREA NITROGEN 25 mg/dL (6-20); CALCIUM 8.9 mg/dL (8.5-10.3); CARBON DIOXIDE - CO2 27 mmol/L (21-32); CHLORIDE 106 mmol/L (101-111); CHOL/HDL RATIO 4.1 (<5.0); CHOLESTEROL 146 mg/dL; CREATININE 1.4 mg/dL (0.6-1.2); GFR - MDRD 49 (>89); GLUCOSE 128 mg/dL (70-100); HDL CHOLESTEROL 36 mg/dL; LDL CHOLESTEROL,CALCULATED 91 mg/dL; LDL/HDL RATIO 2.5 (<3.6); SODIUM 140 mmol/L (135-145); VLDL CHOLESTEROL 19 mg/dL
== END 2020-01-04 08:03 | disposition home or self-care (01) ==
LOC: LAB 08:02
PROVIDERS: ATTEND Internal Medicine Cardiovascular Disease
DX: I10 Essential (primary) hypertension (principal)
CPT/HCPCS: 36415; 80048; 80061; 83721; 85025

== ENCOUNTER 2020-02-08 11:02 | Inpatient (IN) | payer MEDICARE, OTHER ==
[2020-02-08 11:27] LABS: BASOPHILS % (AUTO) 0.2 %; EOSINOPHILS # (AUTO) 0.1 10^3/uL (0.0-0.7); EOSINOPHILS % (AUTO) 0.8 %; HGB - HEMOGLOBIN 15.1 g/dL (14.0-18.0); LYMPHOCYTES # (AUTO) 1.3 10^3/uL (1.5-3.5); LYMPHOCYTES % (AUTO) 10.1 %; MEAN CORPUSCULAR HEMOGLOBIN 32.7 pg (27.0-31.0); MEAN CORPUSCULAR HGB CONC 35.4 g/dL (32.0-36.0); MEAN CORPUSCULAR VOLUME 92.4 fL (80.0-94.0); MEAN PLATELET VOLUME 11.5 fL (7.4-11.4); MONOCYTES # (AUTO) 0.9 10^3/uL (0.0-1.0); MONOCYTES % (AUTO) 6.8 %; NEUTROPHILS # (AUTO) 10.6 10^3/uL (1.5-6.6); NEUTROPHILS % (AUTO) 81.5 %; PLT - PLATELET COUNT 192 10^3/uL (130-450); RED BLOOD COUNT 4.62 10^6/uL (4.70-6.10); RED CELL DISTRIBUTION WIDTH 13.5 % (12.0-15.0)
[2020-02-08 11:54] LABS: ALBUMIN 3.2 g/dL (3.2-5.5); ALBUMIN/GLOBULIN RATIO 0.9 (1.0-2.2); BILIRUBIN,TOTAL 2.2 mg/dL (0.2-1.0); CALCIUM 8.2 mg/dL (8.5-10.3); TOTAL PROTEIN 6.7 g/dL (6.7-8.2)
[2020-02-08] MEDS ORDERED: SODIUM CHLORIDE 0.9% 1,000 ML IV ONE ×3 (12:22→13:27)
[2020-02-08] MEDS ORDERED: METOCLOPRAMIDE 10 MG/2 ML VIAL IVP STA (12:22)
--- NOTE | 2020-02-08 12:27 | ED Physician Documentation ---
PD HPI ABD PAIN - Stated complaint Stated Complaint: ABD PX - Chief complaint Chief Complaint: Abd Pain - History obtained from History obtained from: Patient (79-year-old gentleman with history of coronary disease, appendectomy at age 12 presents with general abdominal discomfort, not "pain," since last Saturday, 6 days ago. Its associated with vomiting the first few days, now he is just hiccuping and belching a lot and cannot really keep anything down and has decreased appetite. His bowel movements have been fairly normal, none in the last 48 hours though. He is never had anything like this before. No fevers or chills. No other abdominal surgeries other than that appendectomy.) Review of Systems Ten Systems: 10 systems reviewed and negative Constitutional: denies: Fever, Chills Cardiac: denies: Chest pain / pressure, Palpitations Respiratory: reports: Dyspnea (For the last year and a half with negative work-u p). denies: Cough GI: reports: Abdominal Pain, Nausea, Vomiting. denies: Constipation, Diarrhea PD PAST MEDICAL HISTORY - Past Medical History Past Medical History: Yes Cardiovascular: Hypertension, High cholesterol, Coronary artery disease Endocrine/Autoimmune: Type 2 diabetes HEENT: Glaucoma - Past Surgical History Past Surgical History: Yes General: Appendectomy, Hiatal hernia repair Ortho: Spine surgery - Present Medications Home Medications: Ambulatory Orders Medication Instructions Recorded Confirmed Atorvastatin Calcium [Lipitor] 40 mg PO QPM 10/27/13 08/08/18 carvediloL [Coreg] 25 mg PO BID 10/27/13 08/08/18 glipiZIDE [Glucotrol] 5 mg PO 0730,1630 10/27/13 08/08/18 Albuterol Sulfate [Proair Hfa 2 puffs INH Q4H PRN 08/08/18 08/08/18 Inhaler] Lisinopril/Hydrochlorothiazide 1 tab PO DAILY 08/08/18 08/08/18 [Lisinopril-Hctz 20-12.5 mg Tab] - Allergies Allergies/Adverse Reactions: Allergies Allergy/AdvReac Type Severity Reaction Status Date / Time No Known Drug Allergies Allergy Verified 02/08/20 11:17 - Social History Does the pt smoke?: No Smoking Status: Never smoker Does the pt drink ETOH?: No Does the pt have substance abuse?: No - Family History Family history: reports: Non contributory - Immunizations Immunizations are current?: Yes - POLST Patient has POLST: No POLST Status: Full Code PD ED PE NORMAL - Vitals Vital signs reviewed: Yes - General General: Alert and oriented X 3, Other (Appears uncomfortable and hiccuping, otherwise in no distress) - HEENT HEENT: PERRL, EOMI - Neck Neck: Supple, no meningeal sign, No bony TTP - Cardiac Cardiac: RRR (With frequent extrasystoles), No murmur - Respiratory Respiratory: No respiratory distress, Clear bilaterally - Abdomen Abdomen: Other (Diminished to absent bowel tones, slightly distended but nontender.) - Back Back: No CVA TTP, No spinal TTP - Derm Derm: Normal color, Warm and dry - Extremities Extremities: No edema, No calf tenderness / cord - Neuro Neuro: Alert and oriented X 3, Normal speech Results - Vitals Vitals: Vital Signs - 24 hr 02/08/20 02/08/20 11:14 11:23 Temperature 35.9 C L Heart Rate 91 87 Respiratory 24 23 Rate Blood Pressure 122/70 122/70 O2 Saturation 97 96 Oxygen O2 Source Room air - EKG (time done) 1118 Rate: Rate (enter#) (98) Rhythm: NSR (with freq PVCs) [place]: LAD Intervals: Prolonged AR, Other (IVCD) Ischemia: Q waves (inferior/anterior) - Labs Labs: Laboratory Tests 02/08/20 02/08/20 02/08/20 11:17 11:17 11:17 WBC 13.0 H RBC 4.62 L Hgb 15.1 Hct 42.7 MCV 92.4 MCH 32.7 H MCHC 35.4 RDW 13.5 Plt Count 192 MPV 11.5 H Neut # (Auto) 10.6 H Lymph # (Auto) 1.3 L [place] # (Auto) 0.9 Eos # (Auto) 0.1 Baso # (Auto) 0.0 Absolute Nucleated RBC 0.00 Nucleated RBC % 0.0 Sodium 131 L Potassium 3.3 L Chloride 98 L Carbon Dioxide 22 Anion Gap 11.0 BUN 98 H* Creatinine 2.0 H Estimated GFR (MDRD) 32 L Glucose 210 H Calcium 8.2 L Total Bilirubin 2.2 H AST 44 H ALT 42 Alkaline Phosphatase 57 Troponin I High Sens 21.4 H* Total Protein 6.7 Albumin 3.2 Globulin 3.5 Albumin/Globulin Ratio 0.9 L Lipase 28 PD MEDICAL DECISION MAKING - ED course ED course: 79-year-old gentleman with multiple comorbidities presents with 6 days of abdominal complaints and is found to have cholecystitis, acute kidney injury and an ileus. Case was discussed by phone with Dr. Cook, the on-call surgeon at 1:25 PM. She will follow along and defer to medicine for admission. Departure - Departure Disposition: 66 [facility] DC/Xfer Clinical Impression: Cholecystitis, Ileus, BERT (acute kidney injury) Condition: Serious
--- NOTE | 2020-02-08 13:07 | CT Report ---
Reason: abdominal pain and vomiting Procedure Date: 02/08/2020 Accession Number: [id number] / [id number] Procedure: CT - Abdomen/Pelvis WO CPT Code: Final Report FULL RESULT: EXAM: CT ABDOMEN AND PELVIS EXAM DATE: 02/08/2020 12:50 PM. CLINICAL HISTORY: Abdominal pain and vomiting. COMPARISONS: None. TECHNIQUE: Routine helical CT imaging was performed through the abdomen and pelvis. IV contrast: None. Enteric contrast: No. Reconstructions: Coronal and sagittal. In accordance with CT protocol optimization, one or more of the following dose reduction techniques were utilized for this exam: automated exposure control, adjustment of mA and/or KV based on patient size, or use of iterative reconstructive technique. FINDINGS: Lung Bases: Elevated right hemidiaphragm. Right middle and right lower lobe atelectasis/scarring. Coronary calcified plaque. Small hiatal hernia. Liver: Unenhanced images of the liver are unremarkable. Gallbladder/Bile Ducts: Distended gallbladder with pericholecystic edema and gallbladder wall thickening. Gallstone present within the gallbladder neck measuring up to 2.3 cm. Spleen: Normal. Pancreas: Mild pancreatic parenchymal volume loss. No peripancreatic edema. Calcification is seen in the tail of the pancreas. Adrenal Glands: Normal. Kidneys: Left greater than right renal parenchymal volume loss. No perinephric stranding. No hydronephrosis. Peritoneal Cavity/Bowel: Stomach is mildly distended and unremarkable. Fluid-filled and gas-filled small bowel is seen with gradual tapering at the terminal ileum. No clear evidence for focal obstruction. No portal venous gas. No free air. Small volume of stool in the colon. Diverticuli are seen in the distal colon. No diverticulitis. No enlarged retroperitoneal or mesenteric lymph nodes. Appendix is not seen. No pericecal inflammatory changes. Pelvic Organs: Urinary bladder is mildly distended and unremarkable. Prostate gland is enlarged measuring transverse dimension 8.1 cm. No pelvic adenopathy. Vasculature: Vascular calcifications. No aneurysm. Bones: Degenerative changes of the lower thoracic and lumbar spine. Levoscoliosis of the lumbar spine. Changes are seen from posterior L2-L3 fusion and laminectomy. Lumbar facet arthropathy. Degenerative changes of both hip joints. Sclerotic focus in the medial right ilium, indeterminate. Other: None. IMPRESSION: 1. Cholelithiasis within the gallbladder neck with CT features consistent with cholecystitis. There is pericholecystic edema, gallbladder wall thickening and gallbladder distention. 2. Fluid and gas filled distended small bowel with gradual tapering to the terminal ileum without a transition point. The findings may represent ileus. Features less typical for early obstruction. Enteritis may also have this appearance. No free air. 3. Colonic diverticulosis. No diverticulitis. 4. Prostate gland enlargement. [facility]
[2020-02-08] MEDS ORDERED: PIPERACILLIN/TAZOBACTAM 3.375 GM in SODIUM CHLORIDE 0.9% MINIBAG 100 ML IV STA (13:25)
[2020-02-08] MEDS ORDERED: ONDANSETRON 4 MG/2 ML VIAL IVP PRN (13:54)
[2020-02-08] MEDS ORDERED: ACETAMINOPHEN 325 MG SUPP PR PRN (13:58)
[2020-02-08] MEDS ORDERED: DEXTROSE 5%-0.9% NACL 1,000 ML IV SCH (14:00)
[2020-02-08 14:05] LABS: INR 1.3 (0.8-1.2); PT - PROTHROMBIN TIME 14.7 secs (9.9-12.6)
[2020-02-08] MEDS: ACETAMINOPHEN 1,000 MG/100 ML 100 ML IV PRN (17:38)
--- NOTE | 2020-02-08 18:00 | HISTORY & PHYSICAL EXAMINATION ---
Chief Complaint - Chief Complaint Chief Complaint: RUQ epigastric abdominal pain Abdominal Pain HPI - History Obtained From Records Reviewed: RN notes reviewed History obtained from: Patient - History of Present Illness Severity at the worst: Moderate Pain Quality: Dull, Cramping, Throbbing Context-Pain started w/: Eating (started last Saturday evening. Was really bad that evening and then got a little better in the morning but now has p rogressively gotten worse through the week finally came into today after his doctor and his daughter in law who is an BATCH OPER[employer] told him to come in) Timing: Gradual onset Improved with: Nothing Worsened by: Eating Associated symptoms: Shortness of air, Nausea PMH/PSH - Past Medical History Cardiovascular: positive: Hypertension, High cholesterol, Coronary artery disease Endocrine/Autoimmune: positive: Type 2 diabetes HEENT: positive: Glaucoma - Past Surgical History General: positive: Appendectomy, Hiatal hernia repair Ortho: positive: Spine surgery Social & Family Hx - Social History Does the pt smoke?: No Smoking Status: Never smoker Does the pt drink ETOH?: No Does the pt have substance abuse?: No - POLST Patient has POLST: No POLST Status: Full Code Meds/Allgy - Home Medications Home Medications: Ambulatory Orders Medication Instructions Recorded Confirmed Atorvastatin Calcium [Lipitor] 40 mg PO QPM 10/27/13 08/08/18 carvediloL [Coreg] 25 mg PO BID 10/27/13 08/08/18 glipiZIDE [Glucotrol] 5 mg PO 0730,1630 10/27/13 08/08/18 Albuterol Sulfate [Proair Hfa 2 puffs INH Q4H PRN 08/08/18 08/08/18 Inhaler] Lisinopril/Hydrochlorothiazide 1 tab PO DAILY 08/08/18 08/08/18 [Lisinopril-Hctz 20-12.5 mg Tab] - Allergies Allergies/Adverse Reactions: Allergies Allergy/AdvReac Type Severity Reaction Status Date / Time No Known Drug Allergies Allergy Verified 02/08/20 11:17 Review of Systems - Constitutional Constitutional: reports: Weakness, Poor appetite - Eyes Eyes: denies: Pain - Ears, Nose & Throat Ears, Nose & Throat: denies: Ear pain - Cardiovascular Cariovascular: reports: Other (see HPI) - Respiratory Respiratory: reports: Cough, SOB with exertion. denies: Sputum production, Wheezing (long standing but SOB is new) - Gastrointestinal Gastrointestinal: reports: Abdominal pain, Abdominal distention, Nausea, Bloating, Poor appetite - Genitourinary Genitourinary: denies: Dysuria - Musculoskeletal Musculoskeletal: denies: Muscle pain - Integumentary Integumentary: denies: Rash - Neurological Neurological: denies: Headache, Dizziness - All Other Systems All Other Systems: reports: Reviewed and negative Exam - Vital Signs Vital Signs: Vital Signs x48h Temp Pulse Pulse Resp BP BP Pulse Ox 02/08/20 16:21 36.4 C L 76 20 98 02/08/20 16:00 36.4 C L 75 20 128/93 H 97 02/08/20 11:59 36.4 C L 76 20 124/71 98 02/08/20 11:23 87 23 122/70 96 02/08/20 11:14 35.9 C L 91 24 122/70 97 - Physical Exam General Appearance: positive: No acute distress (sitting in bed comfortably able to hold conversation without difficulty Mask on) Eyes Bilateral: positive: Normal inspection, No scleral icterus Respiratory: positive: Breath sounds nml Cardiovascular: positive: Regular rate & rhythm Abdomen: positive: Other (positive [facility] with RUQ tenderness with deep palpation, no peritoneal signs no R/G/R BS diminished) Skin: positive: No rash Extremities: positive: Full ROM Neurologic/Psychiatric: positive: Oriented x3 Results - Lab Results Fish Bones: 02/08/20 11:17 02/08/20 11:17 Other Lab Results: Lab Results x24hrs 02/08/20 02/08/20 02/08/20 Range/Units 11:17 11:17 11:17 WBC (4.8-10.8) x10^3/uL RBC (4.70-6.10) 10^6/uL Hgb (14.0-18.0) g/dL Hct (42.0-52.0) % MCV (80.0-94.0) fL MCH (27.0-31.0) pg MCHC (32.0-36.0) g/dL RDW (12.0-15.0) % Plt Count (130-450) 10^3/uL MPV (7.4-11.4) fL Neut # (Auto) (1.5-6.6) 10^3/uL Lymph # (Auto) (1.5-3.5) 10^3/uL [place] # (Auto) (0.0-1.0) 10^3/uL Eos # (Auto) (0.0-0.7) 10^3/uL Baso # (Auto) (0.0-0.1) 10^3/uL Absolute Nucleated RBC x10^3/uL Nucleated RBC % /100WBC PT 14.7 H (9.9-12.6) secs INR 1.3 H (0.8-1.2) Sodium 131 L (135-145) mmol/L Potassium 3.3 L (3.5-5.0) mmol/L Chloride 98 L (101-111) mmol/L Carbon Dioxide 22 (21-32) mmol/L Anion Gap 11.0 (6-13) BUN 98 H* (6-20) mg/dL Creatinine 2.0 H (0.6-1.2) mg/dL Estimated GFR (MDRD) 32 L (>89) Glucose 210 H (70-100) mg/dL Calcium 8.2 L (8.5-10.3) mg/dL Total Bilirubin 2.2 H (0.2-1.0) mg/dL AST 44 H (10-42) IU/L ALT 42 (10-60) IU/L Alkaline Phosphatase 57 (42-121) IU/L Troponin I High Sens 21.4 H* (2.3-19.7) ng/L Total Protein 6.7 (6.7-8.2) g/dL Albumin 3.2 (3.2-5.5) g/dL Globulin 3.5 (2.1-4.2) g/dL Albumin/Globulin Ratio 0.9 L (1.0-2.2) Lipase 28 (22-51) U/L 02/07/ Range/Units 11:17 WBC 13.0 H (4.8-10.8) x10^3/uL RBC 4.62 L (4.70-6.10) 10^6/uL Hgb 15.1 (14.0-18.0) g/dL Hct 42.7 (42.0-52.0) % MCV 92.4 (80.0-94.0) fL MCH 32.7 H (27.0-31.0) pg MCHC 35.4 (32.0-36.0) g/dL RDW 13.5 (12.0-15.0) % Plt Count 192 (130-450) 10^3/uL MPV 11.5 H (7.4-11.4) fL Neut # (Auto) 10.6 H (1.5-6.6) 10^3/uL Lymph # (Auto) 1.3 L (1.5-3.5) 10^3/uL [place] # (Auto) 0.9 (0.0-1.0) 10^3/uL Eos # (Auto) 0.1 (0.0-0.7) 10^3/uL Baso # (Auto) 0.0 (0.0-0.1) 10^3/uL Absolute Nucleated RBC 0.00 x10^3/uL Nucleated RBC % 0.0 /100WBC PT (9.9-12.6) secs INR (0.8-1.2) Sodium (135-145) mmol/L Potassium (3.5-5.0) mmol/L Chloride (101-111) mmol/L Carbon Dioxide (21-32) mmol/L Anion Gap (6-13) BUN (6-20) mg/dL Creatinine (0.6-1.2) mg/dL Estimated GFR (MDRD) (>89) Glucose (70-100) mg/dL Calcium (8.5-10.3) mg/dL Total Bilirubin (0.2-1.0) mg/dL AST (10-42) IU/L ALT (10-60) IU/L Alkaline Phosphatase (42-121) IU/L Troponin I High Sens (2.3-19.7) ng/L Total Protein (6.7-8.2) g/dL Albumin (3.2-5.5) g/dL Globulin (2.1-4.2) g/dL Albumin/Globulin Ratio (1.0-2.2) Lipase (22-51) U/L Impression/Plan - Problem List Problem List: Acute cholecystitis due to cholelithaisis In depth discussion with the patient was held. We went through the normal anatomy and physiology, we then discussed the pathophysiology of the disease and lastly the possible etiologies and specifically his imaging and lab findings. We then went through the indications for the surgery and the alternatives incl uding open vs laparoscopic approach, use of antibiotics followed by surgery, and abx with observation. We reviewed the risks, the benefits and potential short term and fdc complications of each of the options. We discussed that in the mist of this pandemic our decision tree is altered due to resource utilization. They have expressed understanding of the operations complications including but not limited to bleeding, infection, persistent symptoms, open operation, injury to neighboring structures such as the bile duct/liver/bowel/major arteries and veins, bile leak following surgery, missed or retained common bile duct stones, as well as anesthetic complications including blood clots, heart attack, stroke and were explained to the patient. The patient understands and accepts these risks. Any and all questions were answered to the patient's satisfaction. We will plan to proceed with iv abx and conservative therapy with delayed surgical intervention if possible. We will follow him closely and repeat labs in the am. If he fails we may need to proceed with surgery during this hospitalization. The patient understands this plan and is agreement with it.
[2020-02-08 18:08] LABS: BILIRUBIN,URINE NEGATIVE (NEGATIVE); CLARITY,URINE CLEAR (CLEAR); GLUCOSE, URINE (UA) NEGATIVE (NEGATIVE); KETONES,URINE (UA) NEGATIVE (NEGATIVE); LEUKOCYTE ESTERASE, URINE NEGATIVE (NEGATIVE); NITRITE,URINE NEGATIVE (NEGATIVE); OCCULT BLOOD,URINE NEGATIVE (NEGATIVE); PH,URINE 5.5 PH (5.0-7.5); PROTEIN,URINE NEGATIVE (NEGATIVE); UROBILINOGEN,URINE 0.2 (NORMAL) E.U./dL (NORMAL)
--- NOTE | 2020-02-08 18:19 | HISTORY & PHYSICAL EXAMINATION ---
DATE OF SERVICE: 02/08/2020 Physician: Cynthia Alvarez MD HISTORY OF PRESENT ILLNESS: This is a 79-year-old white male with a history of hyperlipidemia, chronic kidney disease, CAD with stenting done about 1 year ago and he has just been taken off his Plavix, 1 month ago. He also has a history of diabetes, only on oral agents. The patient developed abdominal pain with nausea and vomiting and hiccups for approximately 5-6 days. He was trying to tolerate foods and finally had such minimal intake that he was feeling weak and therefore presented to the emergency room. His workup there showed that he had diminished bowel sounds and CT imaging showed that he has cholecystitis, as well as an ileus. The patient started to get antiemetics and IV fluids and already feels less weak, but is still nauseated. PAST MEDICAL HISTORY 1. Hyperlipidemia. 2. Chronic kidney disease. 3. Coronary artery disease, Plavix for his stent was just stopped a month ago by his doctor. 4. Diabetes. 5. HTN ALLERGIES: NONE. MEDICATIONS 1. Lipitor 40 mg every night. 2. Carvedilol 25 mg b.i.d. 3. Glipizide 5 mg b.i.d. 4. ProAir inhaler p.r.n. 5. Lisinopril/HCTZ 1 tablet daily. SOCIAL HISTORY: The patient is a nonsmoker, who never smoked, drinks no alcohol. No illicit drug use history. The patient lives alone, is a . He does everything around the house independently. FAMILY HISTORY: No inherited diseases. REVIEW OF SYSTEMS: The patient denies any anginal symptoms. He denies dyspnea or edema. He denies palpitations or syncope. There has been no recent travel. He denies diarrhea or fever at all. A comprehensive review of systems was performed and the pertinent positives are listed above, the rest are negative. PHYSICAL EXAMINATION GENERAL: Elderly white male. He is in no distress. He is saying that the nausea is starting to return. VITAL SIGNS: Afebrile with a temperature of 36.4, heart rate 80s to 90s, in sinus rhythm. Blood pressure 128/90, room air saturation 98%. HEENT: Unremarkable. He has moist oral mucosa. NECK: Without JVD in the 30-degree upright angle. CHEST: Clear. HEART: Normal heart sounds. ABDOMEN: Distended, hypertympanic, soft. No tenderness to light touch. No audible bowel sounds. No guarding or rebound. EXTREMITIES: No clubbing, cyanosis or edema. NEUROLOGIC: Grossly intact. LABORATORY DATA: Sodium 131, potassium 3.3, BUN 98, creatinine 2.0. His usual baseline creatinine is 1.2-1.5. Bilirubin 2.2, AST 44, ALT 42. Troponin high sensitivity is 21. Lipase normal at 28. INR 1.3. White blood count 13 with a left shift of elevated neutrophils, hemoglobin 15, platelet count normal at 192. IMAGING: Abdomen and pelvis CT shows distended gallbladder with pericholecystic edema and gallbladder wall thickening. A gallstone is present within the gallbladder neck that measures 2.3 cm. This is consistent with cholecystitis. There is fluid and gas-filled distended small bowel, which tapers in the terminal ileum, but with no transition point and this represents an ileus. He has colonic diverticulosis without diverticulitis. Prostate gland is enlarged. EKG: Normal sinus rhythm, frequent PVCs, left anterior fascicular block, early R/S transition, no ST or T-wave changes and it appears similar to the old EKG except the frequent PVCs are new. IMPRESSION/DIAGNOSES 1. Acute cholecystitis. 2. Ileus. 3. Jiuua-di-cjhlglr kidney disease. 4. Diabetes mellitus, type 2. 5. History of coronary artery disease. 6. History of hypertension. 7. Hyponatremia. 8. Hypokalemia. PLAN: Admit the patient to medical/surgical bed on telemetry. Begin bowel rest with n.p.o. status except ice chips to suck on. Begin IV fluids. Begin antiemetics, pain medications and empiric antibiotics, using piperacillin/tazobactam. General surgery consult regarding further management of this cholecystitis, which is likely to be recommended for a cool down and then elective cholecystectomy. Follow his electrolytes and CBC daily. Use IV forms of medications for his blood pressure and remain off of Plavix, and apparently he is not on daily aspirin. DEEP VENOUS THROMBOSIS PROPHYLAXIS: SCDs. CODE STATUS: FULL CODE. ATTESTATION: The patient is expected to be discharged or transferred to another facility within 96 hours: Yes. cc: Jordin Wheeler MD TD: 02/08/2020 17:55 [facility]
[2020-02-08] MEDS: NS W/40 MEQ KCL 1,000 ML IV SCH (18:54)
[2020-02-08] MEDS: SODIUM CHLORIDE FLUSH 0.9% 10 ML SYRINGE IVP PRN ×2 (19:07→19:20)
[2020-02-08] MEDS: PROCHLORPERAZINE 10 MG/2 ML VIAL IVP PRN (19:07)
[2020-02-08] MEDS: METOPROLOL 5 MG/5 ML VIAL IVP SCH (19:18)
[2020-02-08] MEDS ORDERED: PROMETHAZINE INJ 25 MG in SODIUM CHLORIDE 0.9% 50 ML IV PRN (20:25)
[2020-02-08] MEDS ORDERED: LORazepam 2 MG/ML VIAL IVP STA (20:26)
[2020-02-08] MEDS: SODIUM CHLORIDE FLUSH 0.9% 10 ML SYRINGE IVP SCH (20:40)
[2020-02-08] MEDS: FAMOTIDINE 20 MG/2 ML VIAL IVP SCH (20:45)
[2020-02-08] MEDS: PIPERACILLIN/TAZOBACTAM 4.5 GM in SODIUM CHLORIDE 0.9% MINIBAG 100 ML IV SCH (21:13)
[2020-02-09] MEDS: SODIUM CHLORIDE FLUSH 0.9% 10 ML SYRINGE IVP SCH ×3 (00:53→19:10)
[2020-02-09] MEDS: METOPROLOL 5 MG/5 ML VIAL IVP SCH ×4 (00:53→19:10)
[2020-02-09] MEDS: PIPERACILLIN/TAZOBACTAM 4.5 GM in SODIUM CHLORIDE 0.9% MINIBAG 100 ML IV SCH ×4 (02:15→20:25)
[2020-02-09] MEDS: NS W/40 MEQ KCL 1,000 ML IV SCH ×3 (04:32→22:50)
[2020-02-09 05:06] LABS: BASOPHILS % (AUTO) 0.3 %; EOSINOPHILS # (AUTO) 0.1 10^3/uL (0.0-0.7); EOSINOPHILS % (AUTO) 0.9 %; HGB - HEMOGLOBIN 13.5 g/dL (14.0-18.0); LYMPHOCYTES # (AUTO) 1.1 10^3/uL (1.5-3.5); LYMPHOCYTES % (AUTO) 9.2 %; MEAN CORPUSCULAR HEMOGLOBIN 33.4 pg (27.0-31.0); MEAN CORPUSCULAR HGB CONC 35.5 g/dL (32.0-36.0); MEAN CORPUSCULAR VOLUME 94.1 fL (80.0-94.0); MEAN PLATELET VOLUME 11.2 fL (7.4-11.4); MONOCYTES # (AUTO) 0.8 10^3/uL (0.0-1.0); NEUTROPHILS # (AUTO) 9.5 10^3/uL (1.5-6.6); PLT - PLATELET COUNT 185 10^3/uL (130-450); RED BLOOD COUNT 4.04 10^6/uL (4.70-6.10); RED CELL DISTRIBUTION WIDTH 13.4 % (12.0-15.0); WHITE BLOOD COUNT 11.5 x10^3/uL (4.8-10.8)
[2020-02-09 05:29] LABS: ALBUMIN 2.5 g/dL (3.2-5.5); ALBUMIN/GLOBULIN RATIO 0.8 (1.0-2.2); BILIRUBIN,TOTAL 2.5 mg/dL (0.2-1.0); CALCIUM 7.6 mg/dL (8.5-10.3); CREATININE 1.6 mg/dL (0.6-1.2); TOTAL PROTEIN 5.5 g/dL (6.7-8.2)
[2020-02-09] MEDS: FAMOTIDINE 20 MG/2 ML VIAL IVP SCH ×2 (08:14→20:25)
--- NOTE | 2020-02-09 11:26 | PROVIDER PROGRESS NOTE ---
Subjective - Prog Note Date Prog Note Date: 02/09/20 Prog Note Time: 11:24 - Subjective Pt reports feeling: Improved Subjective: he states his pain is better. Would like to get out of bed to sit in chair but SCDs are getting in his way. Denies cp, sob. No leg edema. Current Medications - Current Medications Current Medications: Active Medications Famotidine (Pepcid) 20 mg IVP BID [facility] Last Admin: 02/09/20 08:14 Dose: 20 mg Hydromorphone HCl (Dilaudid Inj Syringe) 0.5 mg IVP Q2H PRN PRN Reason: Pain 8 to 10 Piperacillin Sod/Tazobactam (Sod 4.5 gm/ Sodium Chloride) 100 mls @ 200 mls/hr IV Q6H [facility] Last Infusion: 02/09/20 08:43 Dose: Infused Acetaminophen (Ofirmev) 100 mls @ 400 mls/hr IV Q6HR PRN PRN Reason: Pain or Fever > 38C (100.4F) Last Infusion: 02/08/20 19:08 Dose: Infused Potassium Chloride/Sodium Chloride (Normal Saline 0.9% W/40 Meq Kcl) 1,000 mls @ 125 mls/hr IV .Q8H [facility] Last Admin: 02/09/20 04:32 Dose: 125 mls/hr Promethazine HCl 25 mg/ Sodium (Chloride) 51 mls @ 100 mls/hr IV Q6H PRN PRN Reason: Nausea / Vomiting Metoprolol Tartrate (Lopressor Inj) 2.5 mg IVP Q6H [facility] Last Admin: 02/09/20 06:53 Dose: 2.5 mg Prochlorperazine Edisylate (Compazine Inj) 10 mg IVP Q6HR PRN PRN Reason: Nausea / Vomiting Last Admin: 02/08/20 19:07 Dose: 10 mg Sodium Chloride (Normal Saline Flush 0.9%) 10 ml IVP PRN PRN PRN Reason: NEEDED PER PROVIDER ORDERS Last Admin: 02/08/20 19:20 Dose: 10 ml Sodium Chloride (Normal Saline Flush 0.9%) 10 ml IVP 0100,0900,1700 [facility] Last Admin: 02/09/20 08:14 Dose: 10 ml Atorvastatin Calcium [Lipitor] 40 mg PO QPM 10/27/13 carvediloL [Coreg] 25 mg PO BID 10/27/13 glipiZIDE [Glucotrol] 5 mg PO 0730,1630 10/27/13 Albuterol Sulfate [Proair Hfa Inhaler] 2 puffs INH Q4H PRN 08/08/18 Lisinopril/Hydrochlorothiazide [Lisinopril-Hctz 20-12.5 mg Tab] 1 tab PO DAILY 08/08/18 Objective - Vital Signs/Intake & Output Reviewed Vital Signs: Yes Vital Signs: Vital Signs x48h Temp Pulse Resp BP BP Pulse Ox 02/09/20 07:40 36.8 C 72 18 132/66 H 96 02/09/20 06:53 137/71 H 02/09/20 04:52 36.8 C 70 16 120/60 96 Intake & Output: Intake & Output 02/06/20 02/07/20 02/08/20 02/09/20 23:59 23:59 23:59 23:59 Intake Total 2990.833 904.167 Output Total 1000 1375 Balance 1990.833 -470.833 - Objective General Appearance: positive: No acute distress, Alert, Other (elderly bearded white male, laying in bed, bored, watching TV,) Eyes Bilateral: positive: PERRL ENT: positive: Pharynx nml, No signs of dehydration Neck: positive: No JVD Respiratory: positive: Chest non-tender, No respiratory distress. negative: Wheezes, Rales, Rhonchi Cardiovascular: positive: Regular rate & rhythm. negative: Gallop/S4, Friction rub Abdomen: positive: No organomegaly, Nml bowel sounds, Other (mild distension and minimal RUQ pain. He rates it a 3 or 4. Hypoactive bowel sounds.) Skin: positive: Warm, Dry Extremities: positive: Non-tender, No pedal edema Neurologic/Psychiatric: positive: Oriented x3, CN's nml (2-12) (mildly deaf), Motor nml - Lab Results Fish Bones: 02/09/20 04:48 02/09/20 04:48 Other Labs: Lab Results x24hrs 02/09/20 02/09/20 02/08/20 Range/Units 04:48 04:48 16:45 WBC 11.5 H (4.8-10.8) x10^3/uL RBC 4.04 L (4.70-6.10) 10^6/uL Hgb 13.5 L (14.0-18.0) g/dL Hct 38.0 L (42.0-52.0) % MCV 94.1 H (80.0-94.0) fL MCH 33.4 H (27.0-31.0) pg MCHC 35.5 (32.0-36.0) g/dL RDW 13.4 (12.0-15.0) % Plt Count 185 (130-450) 10^3/uL MPV 11.2 (7.4-11.4) fL Neut # (Auto) 9.5 H (1.5-6.6) 10^3/uL Lymph # (Auto) 1.1 L (1.5-3.5) 10^3/uL [place] # (Auto) 0.8 (0.0-1.0) 10^3/uL Eos # (Auto) 0.1 (0.0-0.7) 10^3/uL Baso # (Auto) 0.0 (0.0-0.1) 10^3/uL Absolute Nucleated RBC 0.00 x10^3/uL Nucleated RBC % 0.0 /100WBC PT (9.9-12.6) secs INR (0.8-1.2) Sodium 139 (135-145) mmol/L Potassium 3.5 (3.5-5.0) mmol/L Chloride 109 (101-111) mmol/L Carbon Dioxide 22 (21-32) mmol/L Anion Gap 8.0 (6-13) BUN 89 H* (6-20) mg/dL Creatinine 1.6 H (0.6-1.2) mg/dL Estimated GFR (MDRD) 42 L (>89) Glucose 151 H (70-100) mg/dL Calcium 7.6 L (8.5-10.3) mg/dL Total Bilirubin 2.5 H (0.2-1.0) mg/dL AST 33 (10-42) IU/L ALT 35 (10-60) IU/L Alkaline Phosphatase 56 (42-121) IU/L Troponin I High Sens (2.3-19.7) ng/L Total Protein 5.5 L (6.7-8.2) g/dL Albumin 2.5 L (3.2-5.5) g/dL Globulin 3.0 (2.1-4.2) g/dL Albumin/Globulin Ratio 0.8 L (1.0-2.2) Amylase 63 (28-100) U/L Lipase 27 (22-51) U/L Urine Color YELLOW Urine Clarity CLEAR (CLEAR) Urine pH 5.5 (5.0-7.5) PH Ur Specific [place] 1.015 (1.002-1.030) Urine Protein NEGATIVE (NEGATIVE) mg/dL Urine Glucose (UA) NEGATIVE (NEGATIVE) mg/dL Urine Ketones NEGATIVE (NEGATIVE) mg/dL Urine Occult Blood NEGATIVE (NEGATIVE) Urine Nitrite NEGATIVE (NEGATIVE) Urine Bilirubin NEGATIVE (NEGATIVE) Urine Urobilinogen 0.2 (NORMAL) (NORMAL) E.U./dL Ur Leukocyte Esterase NEGATIVE (NEGATIVE) Ur Microscopic Review NOT INDICATED Urine Culture Comments NOT INDICATED 02/08/20 02/08/20 02/08/20 Range/Units 11:17 11:17 11:17 WBC (4.8-10.8) x10^3/uL RBC (4.70-6.10) 10^6/uL Hgb (14.0-18.0) g/dL Hct (42.0-52.0) % MCV (80.0-94.0) fL MCH (27.0-31.0) pg MCHC (32.0-36.0) g/dL RDW (12.0-15.0) % Plt Count (130-450) 10^3/uL MPV (7.4-11.4) fL Neut # (Auto) (1.5-6.6) 10^3/uL Lymph # (Auto) (1.5-3.5) 10^3/uL [place] # (Auto) (0.0-1.0) 10^3/uL Eos # (Auto) (0.0-0.7) 10^3/uL Baso # (Auto) (0.0-0.1) 10^3/uL Absolute Nucleated RBC x10^3/uL Nucleated RBC % /100WBC PT 14.7 H (9.9-12.6) secs INR 1.3 H (0.8-1.2) Sodium 131 L (135-145) mmol/L Potassium 3.3 L (3.5-5.0) mmol/L Chloride 98 L (101-111) mmol/L Carbon Dioxide 22 (21-32) mmol/L Anion Gap 11.0 (6-13) BUN 98 H* (6-20) mg/dL Creatinine 2.0 H (0.6-1.2) mg/dL Estimated GFR (MDRD) 32 L (>89) Glucose 210 H (70-100) mg/dL Calcium 8.2 L (8.5-10.3) mg/dL Total Bilirubin 2.2 H (0.2-1.0) mg/dL AST 44 H (10-42) IU/L ALT 42 (10-60) IU/L Alkaline Phosphatase 57 (42-121) IU/L Troponin I High Sens 21.4 H* (2.3-19.7) ng/L Total Protein 6.7 (6.7-8.2) g/dL Albumin 3.2 (3.2-5.5) g/dL Globulin 3.5 (2.1-4.2) g/dL Albumin/Globulin Ratio 0.9 L (1.0-2.2) Amylase (28-100) U/L Lipase 28 (22-51) U/L Urine Color Urine Clarity (CLEAR) Urine pH (5.0-7.5) PH Ur Specific [place] (1.002-1.030) Urine Protein (NEGATIVE) mg/dL Urine Glucose (UA) (NEGATIVE) mg/dL Urine Ketones (NEGATIVE) mg/dL Urine Occult Blood (NEGATIVE) Urine Nitrite (NEGATIVE) Urine Bilirubin (NEGATIVE) Urine Urobilinogen (NORMAL) E.U./dL Ur Leukocyte Esterase (NEGATIVE) Ur Microscopic Review Urine Culture Comments 02/08/20 Range/Units 11:17 WBC 13.0 H (4.8-10.8) x10^3/uL RBC 4.62 L (4.70-6.10) 10^6/uL Hgb 15.1 (14.0-18.0) g/dL Hct 42.7 (42.0-52.0) % MCV 92.4 (80.0-94.0) fL MCH 32.7 H (27.0-31.0) pg MCHC 35.4 (32.0-36.0) g/dL RDW 13.5 (12.0-15.0) % Plt Count 192 (130-450) 10^3/uL MPV 11.5 H (7.4-11.4) fL Neut # (Auto) 10.6 H (1.5-6.6) 10^3/uL Lymph # (Auto) 1.3 L (1.5-3.5) 10^3/uL [place] # (Auto) 0.9 (0.0-1.0) 10^3/uL Eos # (Auto) 0.1 (0.0-0.7) 10^3/uL Baso # (Auto) 0.0 (0.0-0.1) 10^3/uL Absolute Nucleated RBC 0.00 x10^3/uL Nucleated RBC % 0.0 /100WBC PT (9.9-12.6) secs INR (0.8-1.2) Sodium (135-145) mmol/L Potassium (3.5-5.0) mmol/L Chloride (101-111) mmol/L Carbon Dioxide (21-32) mmol/L Anion Gap (6-13) BUN (6-20) mg/dL Creatinine (0.6-1.2) mg/dL Estimated GFR (MDRD) (>89) Glucose (70-100) mg/dL Calcium (8.5-10.3) mg/dL Total Bilirubin (0.2-1.0) mg/dL AST (10-42) IU/L ALT (10-60) IU/L Alkaline Phosphatase (42-121) IU/L Troponin I High Sens (2.3-19.7) ng/L Total Protein (6.7-8.2) g/dL Albumin (3.2-5.5) g/dL Globulin (2.1-4.2) g/dL Albumin/Globulin Ratio (1.0-2.2) Amylase (28-100) U/L Lipase (22-51) U/L Urine Color Urine Clarity (CLEAR) Urine pH (5.0-7.5) PH Ur Specific [place] (1.002-1.030) Urine Protein (NEGATIVE) mg/dL Urine Glucose (UA) (NEGATIVE) mg/dL Urine Ketones (NEGATIVE) mg/dL Urine Occult Blood (NEGATIVE) Urine Nitrite (NEGATIVE) Urine Bilirubin (NEGATIVE) Urine Urobilinogen (NORMAL) E.U./dL Ur Leukocyte Esterase (NEGATIVE) Ur Microscopic Review Urine Culture Comments ABX Reporting Has patient been on IV antibiotics over the past 48 hours?: Yes Assessment/Plan - Problem List (1) Cholecystitis Impression: 5 to 6 days of abdominal pain with nausea and vomiting and hiccups. Could not tolerate much food, having decreased p.o. intake and started feeling weak. So he came to the emergency room. He had hypoactive bowel sounds, and a CT showed cholecystitis as well as ileus. Today minimal nausea. Minimal pain. Afebrile. Vitals stable. White cell count down from 13,000 down to 11.5 thousand. Zosyn day #2 Plan: Keep n.p.o., keep on antibiotics. General surgery consult to see him today or tomorrow. (2) Ileus Impression: last BM 02/05 and is passing flatus this am but not much. Plan is as above. (3) Preop cardiovascular exam Impression: His revised cardiac index score was 15% with 5 points on admission. Today his creatinine has come down. He is now down to 4 points but he still a class IV risk of 15%. NSQIP calculation, using geriatric outcomes, has him at a serious complication risk of 2%. Average risk is 2.2%. Any complication is 2.6% with average risk 2.8%. Cardiac complication is 0.1% with average risk 0.1%. He do es have a 10.7% risk of functional decline. Overall he has slightly below average risk. (4) BERT (acute kidney injury) Impression: Baseline BUN is 25. Baseline creatinine is 1.2-1.4. With this admission: 98/2.0> 89/1.6 Due to poor po intake. Plan: Continue IV fluids for hydration (5) CAD (coronary artery disease) Impression: s/p stents 2018. Off plavix 12/2019. He was on atorvastatin. Not on an aspirin. Holding aspirin because of possible surgery. Resume atorvastatin postoperatively. Plan: Troponin 21.4 yesterday morning. We will recheck this morning's troponin. Qualifiers: Coronary Disease-Associated Artery/Lesion type: [place] artery (6) Diabetes mellitus Impression: On Glucotrol at home. Admitting random glucose was 210. Fasting glucose 151. Plan: Sliding scale for n.p.o. status and check glycosylated hemoglobin Qualifiers: Diabetes mellitus type: type 2 Diabetes mellitus meterman insulin use: without meterman use Diabetes mellitus complication status: without complication Qualified Code(s): E11.9 - Type 2 diabetes mellitus without complications (7) HTN (hypertension) Impression: on metoprolol IV and holding lisinopril. Stable control. Qualifiers: Hypertension type: essential hypertension Qualified Code(s): I10 - Essential (primary) hypertension (8) DVT prophylaxis Impression: are SCDs but I have RN remove them when he gets out of bed to chair or bathroom.
[2020-02-09] MEDS: INSULIN REGULAR HUMAN 300 UNIT/3 ML VIAL SUBQ SCH ×3 (13:27→23:41)
--- NOTE | 2020-02-09 13:49 | PROVIDER PROGRESS NOTE ---
Subjective - General Admit Date: 02/08/20 - Review of Systems General: positive: Fatigue Pulmonary: positive: Shortness of breath (mild unchanged since admission) Gastrointestinal: positive: Other (experienced some pain across the mid abdomen last night but that has resolved and he feels fairly pain free. Still having hicups but no nausea) All Other Systems: positive: Reviewed and negative Objective - Patient Data Vital Signs: Vital Signs x48h Temp Pulse Resp BP BP Pulse Ox 02/09/20 12:10 36.8 C 65 18 139/59 H 98 02/09/20 07:40 36.8 C 72 18 132/66 H 96 02/09/20 06:53 137/71 H Weight: Weight 02/07/20 02/08/20 02/09/20 23:59 23:59 23:59 Weight (kg) 132.5 kg Intake & Output: Intake and Output Totals x24h 02/07/20 02/08/20 02/09/20 23:59 23:59 23:59 Intake Total 2990.833 904.167 Output Total 1000 1575 Balance 1990.833 -670.833 - Lab Results Lab Results: 02/09/20 04:48 02/09/20 04:48 Other Lab Results: Lab Results x24hrs 02/09/20 02/09/20 02/09/20 Range/Units 13:10 04:48 04:48 WBC (4.8-10.8) x10^3/uL RBC (4.70-6.10) 10^6/uL Hgb (14.0-18.0) g/dL Hct (42.0-52.0) % MCV (80.0-94.0) fL MCH (27.0-31.0) pg MCHC (32.0-36.0) g/dL RDW (12.0-15.0) % Plt Count (130-450) 10^3/uL MPV (7.4-11.4) fL Neut # (Auto) (1.5-6.6) 10^3/uL Lymph # (Auto) (1.5-3.5) 10^3/uL [place] # (Auto) (0.0-1.0) 10^3/uL Eos # (Auto) (0.0-0.7) 10^3/uL Baso # (Auto) (0.0-0.1) 10^3/uL Absolute Nucleated RBC x10^3/uL Nucleated RBC % /100WBC PT (9.9-12.6) secs INR (0.8-1.2) Sodium 139 (135-145) mmol/L Potassium 3.5 (3.5-5.0) mmol/L Chloride 109 (101-111) mmol/L Carbon Dioxide 22 (21-32) mmol/L Anion Gap 8.0 (6-13) BUN 89 H* (6-20) mg/dL Creatinine 1.6 H (0.6-1.2) mg/dL Estimated GFR (MDRD) 42 L (>89) Glucose 151 H (70-100) mg/dL POC Whole Bld Glucose 140 H (70 - 100) mg/dL Calcium 7.6 L (8.5-10.3) mg/dL Total Bilirubin 2.5 H (0.2-1.0) mg/dL AST 33 (10-42) IU/L ALT 35 (10-60) IU/L Alkaline Phosphatase 56 (42-121) IU/L Troponin I High Sens 15.3 (2.3-19.7) ng/L Total Protein 5.5 L (6.7-8.2) g/dL Albumin 2.5 L (3.2-5.5) g/dL Globulin 3.0 (2.1-4.2) g/dL Albumin/Globulin Ratio 0.8 L (1.0-2.2) Amylase 63 (28-100) U/L Lipase 27 (22-51) U/L Urine Color Urine Clarity (CLEAR) Urine pH (5.0-7.5) PH Ur Specific [place] (1.002-1.030) Urine Protein (NEGATIVE) mg/dL Urine Glucose (UA) (NEGATIVE) mg/dL Urine Ketones (NEGATIVE) mg/dL Urine Occult Blood (NEGATIVE) Urine Nitrite (NEGATIVE) Urine Bilirubin (NEGATIVE) Urine Urobilinogen (NORMAL) E.U./dL Ur Leukocyte Esterase (NEGATIVE) Ur Microscopic Review Urine Culture Comments 02/09/20 02/08/20 02/08/20 Range/Units 04:48 16:45 11:17 WBC 11.5 H (4.8-10.8) x10^3/uL RBC 4.04 L (4.70-6.10) 10^6/uL Hgb 13.5 L (14.0-18.0) g/dL Hct 38.0 L (42.0-52.0) % MCV 94.1 H (80.0-94.0) fL MCH 33.4 H (27.0-31.0) pg MCHC 35.5 (32.0-36.0) g/dL RDW 13.4 (12.0-15.0) % Plt Count 185 (130-450) 10^3/uL MPV 11.2 (7.4-11.4) fL Neut # (Auto) 9.5 H (1.5-6.6) 10^3/uL Lymph # (Auto) 1.1 L (1.5-3.5) 10^3/uL Cross # (Auto) 0.8 (0.0-1.0) 10^3/uL Eos # (Auto) 0.1 (0.0-0.7) 10^3/uL Baso # (Auto) 0.0 (0.0-0.1) 10^3/uL Absolute Nucleated RBC 0.00 x10^3/uL Nucleated RBC % 0.0 /100WBC PT 14.7 H (9.9-12.6) secs INR 1.3 H (0.8-1.2) Sodium (135-145) mmol/L Potassium (3.5-5.0) mmol/L Chloride (101-111) mmol/L Carbon Dioxide (21-32) mmol/L Anion Gap (6-13) BUN (6-20) mg/dL Creatinine (0.6-1.2) mg/dL Estimated GFR (MDRD) (>89) Glucose (70-100) mg/dL POC Whole Bld Glucose (70 - 100) mg/dL Calcium (8.5-10.3) mg/dL Total Bilirubin (0.2-1.0) mg/dL AST (10-42) IU/L ALT (10-60) IU/L Alkaline Phosphatase (42-121) IU/L Troponin I High Sens (2.3-19.7) ng/L Total Protein (6.7-8.2) g/dL Albumin (3.2-5.5) g/dL Globulin (2.1-4.2) g/dL Albumin/Globulin Ratio (1.0-2.2) Amylase (28-100) U/L Lipase (22-51) U/L Urine Color YELLOW Urine Clarity CLEAR (CLEAR) Urine pH 5.5 (5.0-7.5) PH Ur Specific [place] 1.015 (1.002-1.030) Urine Protein NEGATIVE (NEGATIVE) mg/dL Urine Glucose (UA) NEGATIVE (NEGATIVE) mg/dL Urine Ketones NEGATIVE (NEGATIVE) mg/dL Urine Occult Blood NEGATIVE (NEGATIVE) Urine Nitrite NEGATIVE (NEGATIVE) Urine Bilirubin NEGATIVE (NEGATIVE) Urine Urobilinogen 0.2 (NORMAL) (NORMAL) E.U./dL Ur Leukocyte Esterase NEGATIVE (NEGATIVE) Ur Microscopic Review NOT INDICATED Urine Culture Comments NOT INDICATED - Current Medications Current Medications: Current Medications Generic Name Dose Route Start Last Admin Trade Name Freq PRN Reason Stop Dose Admin Famotidine 20 mg 02/08/20 21:00 02/09/20 08:14 Pepcid IVP 20 mg BID [facility] Administration Piperacillin Sod/Tazobactam 100 mls @ 200 mls/hr 02/08/20 20:00 02/09/20 13:23 Sod 4.5 gm/ Sodium Chloride IV 200 mls/hr Q6H [facility] Administration Acetaminophen 100 mls @ 400 mls/hr 02/08/20 13:59 02/08/20 19:08 Ofirmev IV Infused Q6HR PRN Infusion Pain or Fever > 38C (100.4F) Potassium Chloride/Sodium Chloride 1,000 mls @ 125 mls/hr 02/08/20 18:00 02/09/20 04:32 Normal Saline 0.9% W/40 Meq Kcl IV 125 mls/hr .Q8H [facility] Administration Insulin Human Regular 1 - 5 unit 02/09/20 13:00 02/09/20 13:27 Humulin R SUBQ Not Given Q6HR [facility] Protocol Metoprolol Tartrate 2.5 mg 02/08/20 19:00 02/09/20 13:23 Lopressor Inj IVP 2.5 mg Q6H [facility] Administration Prochlorperazine Edisylate 10 mg 02/08/20 13:54 02/08/20 19:07 Compazine Inj IVP 10 mg Q6HR PRN Administration Nausea / Vomiting Sodium Chloride 10 ml 02/08/20 13:54 02/08/20 19:20 Normal Saline Flush 0.9% IVP 10 ml PRN PRN Administration NEEDED PER PROVIDER ORDERS Sodium Chloride 10 ml 02/08/20 17:00 02/09/20 08:14 Normal Saline Flush 0.9% IVP 10 ml 0100,0900,1700 [facility] Administration - Physical Exam General Appearance: positive: No acute distress (resting comfortably in bed able to hold conversation without issues, good color) Impression/Plan - Problem List Problem List: acute cholecystitis due to cholelithaisis. Clinically he looks improved this morning and feels better, his labs have minor improvement except the bili which is essentially unchanged. Given his clinical response i think it is reasonable to allow another 24 hours and if he improves trial oral intake and if not proceed to surgery as opposed to the ACS recommendations of a cholecystomy tube which would require transfer to a tertiary facility. This case was discussed with the hospitalist as well as Dr. Mac Sharma who both agree with this plan of care. The patient and the hospitalist understand his surgical care will be transitioned to Dr. Giron tomorrow who be take on the decisions for next steps in plan of care.
[2020-02-10] MEDS: METOPROLOL 5 MG/5 ML VIAL IVP SCH ×4 (01:29→19:33)
[2020-02-10] MEDS: SODIUM CHLORIDE FLUSH 0.9% 10 ML SYRINGE IVP SCH ×3 (01:30→15:50)
[2020-02-10] MEDS: PIPERACILLIN/TAZOBACTAM 4.5 GM in SODIUM CHLORIDE 0.9% MINIBAG 100 ML IV SCH ×4 (01:32→20:01)
[2020-02-10 05:21] LABS: BASOPHILS # (AUTO) 0.1 10^3/uL (0.0-0.1); BASOPHILS % (AUTO) 0.4 %; EOSINOPHILS # (AUTO) 0.2 10^3/uL (0.0-0.7); EOSINOPHILS % (AUTO) 1.8 %; HGB - HEMOGLOBIN 13.1 g/dL (14.0-18.0); LYMPHOCYTES # (AUTO) 1.4 10^3/uL (1.5-3.5); LYMPHOCYTES % (AUTO) 10.7 %; MEAN CORPUSCULAR HEMOGLOBIN 31.9 pg (27.0-31.0); MEAN CORPUSCULAR HGB CONC 33.2 g/dL (32.0-36.0); MEAN CORPUSCULAR VOLUME 96.1 fL (80.0-94.0); MEAN PLATELET VOLUME 10.9 fL (7.4-11.4); MONOCYTES # (AUTO) 0.9 10^3/uL (0.0-1.0); NEUTROPHILS # (AUTO) 10.2 10^3/uL (1.5-6.6); NEUTROPHILS % (AUTO) 79.2 %; PLT - PLATELET COUNT 216 10^3/uL (130-450); RED BLOOD COUNT 4.11 10^6/uL (4.70-6.10); RED CELL DISTRIBUTION WIDTH 14.4 % (12.0-15.0); WHITE BLOOD COUNT 12.9 x10^3/uL (4.8-10.8)
[2020-02-10 05:30] LABS: ALBUMIN 2.7 g/dL (3.2-5.5); ALBUMIN/GLOBULIN RATIO 0.9 (1.0-2.2); BILIRUBIN,TOTAL 2.7 mg/dL (0.2-1.0); CALCIUM 7.9 mg/dL (8.5-10.3); CREATININE 1.4 mg/dL (0.6-1.2); TOTAL PROTEIN 5.8 g/dL (6.7-8.2)
[2020-02-10] MEDS: INSULIN REGULAR HUMAN 300 UNIT/3 ML VIAL SUBQ SCH ×2 (05:46→15:39)
[2020-02-10] MEDS: NS W/40 MEQ KCL 1,000 ML IV SCH ×3 (08:21→16:58)
[2020-02-10] MEDS: FAMOTIDINE 20 MG/2 ML VIAL IVP SCH ×2 (08:22→20:02)
--- NOTE | 2020-02-10 10:03 | PROVIDER PROGRESS NOTE ---
Subjective - General Admit Date: 02/08/20 - Review of Systems Gastrointestinal: positive: Other (experienced some pain across the mid abdomen last night but that has resolved and he feels fairly pain free. Still having hicups but no nausea) - Other Other Information/Narrative: No complaints from patient. His bilirubin continues to rise and his white count also went up overnight. Objective - Patient Data Reviewed Vital Signs: Yes Vital Signs: Vital Signs x48h Temp Pulse Resp BP BP Pulse Ox 02/10/20 07:48 36.6 C 64 18 152/72 H 97 02/10/20 06:37 140/59 H 02/10/20 04:07 36.6 C 67 16 126/66 96 Weight: Weight 02/08/20 02/09/20 02/10/20 23:59 23:59 23:59 Weight (kg) 132.5 kg Intake & Output: Intake and Output Totals x24h 02/08/20 02/09/20 02/10/20 23:59 23:59 23:59 Intake Total 2990.833 3104.167 1200 Output Total 1000 2325 775 Balance 1990.833 779.167 425 - Lab Results Lab Results: 02/10/20 04:30 02/10/20 04:30 Other Lab Results: Lab Results x24hrs 02/10/20 02/10/20 02/09/20 Range/Units 04:30 04:30 23:39 WBC 12.9 H (4.8-10.8) x10^3/uL RBC 4.11 L (4.70-6.10) 10^6/uL Hgb 13.1 L (14.0-18.0) g/dL Hct 39.5 L (42.0-52.0) % MCV 96.1 H (80.0-94.0) fL MCH 31.9 H (27.0-31.0) pg MCHC 33.2 (32.0-36.0) g/dL RDW 14.4 (12.0-15.0) % Plt Count 216 (130-450) 10^3/uL MPV 10.9 (7.4-11.4) fL Neut # (Auto) 10.2 H (1.5-6.6) 10^3/uL Lymph # (Auto) 1.4 L (1.5-3.5) 10^3/uL [place] # (Auto) 0.9 (0.0-1.0) 10^3/uL Eos # (Auto) 0.2 (0.0-0.7) 10^3/uL Baso # (Auto) 0.1 (0.0-0.1) 10^3/uL Absolute Nucleated RBC 0.00 x10^3/uL Nucleated RBC % 0.0 /100WBC Sodium 143 (135-145) mmol/L Potassium 4.1 (3.5-5.0) mmol/L Chloride 113 H (101-111) mmol/L Carbon Dioxide 24 (21-32) mmol/L Anion Gap 6.0 (6-13) BUN 58 H (6-20) mg/dL Creatinine 1.4 H (0.6-1.2) mg/dL Estimated GFR (MDRD) 49 L (>89) Glucose 139 H (70-100) mg/dL POC Whole Bld Glucose 125 H (70 - 100) mg/dL Calcium 7.9 L (8.5-10.3) mg/dL Total Bilirubin 2.7 H (0.2-1.0) mg/dL AST 37 (10-42) IU/L ALT 34 (10-60) IU/L Alkaline Phosphatase 54 (42-121) IU/L Troponin I High Sens (2.3-19.7) ng/L Total Protein 5.8 L (6.7-8.2) g/dL Albumin 2.7 L (3.2-5.5) g/dL Globulin 3.1 (2.1-4.2) g/dL Albumin/Globulin Ratio 0.9 L (1.0-2.2) 02/09/20 02/09/20 02/09/20 Range/Units 17:46 13:10 04:48 WBC (4.8-10.8) x10^3/uL RBC (4.70-6.10) 10^6/uL Hgb (14.0-18.0) g/dL Hct (42.0-52.0) % MCV (80.0-94.0) fL MCH (27.0-31.0) pg MCHC (32.0-36.0) g/dL RDW (12.0-15.0) % Plt Count (130-450) 10^3/uL MPV (7.4-11.4) fL Neut # (Auto) (1.5-6.6) 10^3/uL Lymph # (Auto) (1.5-3.5) 10^3/uL [place] # (Auto) (0.0-1.0) 10^3/uL Eos # (Auto) (0.0-0.7) 10^3/uL Baso # (Auto) (0.0-0.1) 10^3/uL Absolute Nucleated RBC x10^3/uL Nucleated RBC % /100WBC Sodium (135-145) mmol/L Potassium (3.5-5.0) mmol/L Chloride (101-111) mmol/L Carbon Dioxide (21-32) mmol/L Anion Gap (6-13) BUN (6-20) mg/dL Creatinine (0.6-1.2) mg/dL Estimated GFR (MDRD) (>89) Glucose (70-100) mg/dL POC Whole Bld Glucose 139 H 140 H (70 - 100) mg/dL Calcium (8.5-10.3) mg/dL Total Bilirubin (0.2-1.0) mg/dL AST (10-42) IU/L ALT (10-60) IU/L Alkaline Phosphatase (42-121) IU/L Troponin I High Sens 15.3 (2.3-19.7) ng/L Total Protein (6.7-8.2) g/dL Albumin (3.2-5.5) g/dL Globulin (2.1-4.2) g/dL Albumin/Globulin Ratio (1.0-2.2) - Current Medications Current Medications: Current Medications Generic Name Dose Route Start Last Admin Trade Name Freq PRN Reason Stop Dose Admin Famotidine 20 mg 02/08/20 21:00 02/10/20 08:22 Pepcid IVP 20 mg BID [facility] Administration Piperacillin Sod/Tazobactam 100 mls @ 200 mls/hr 02/08/20 20:00 02/10/20 08:52 Sod 4.5 gm/ Sodium Chloride IV Infused Q6H [facility] Infusion Acetaminophen 100 mls @ 400 mls/hr 02/08/20 13:59 02/08/20 19:08 Ofirmev IV Infused Q6HR PRN Infusion Pain or Fever > 38C (100.4F) Potassium Chloride/Sodium Chloride 1,000 mls @ 125 mls/hr 02/08/20 18:00 02/10/20 08:21 Normal Saline 0.9% W/40 Meq Kcl IV 125 mls/hr .Q8H [facility] Administration Insulin Human Regular 1 - 5 unit 02/09/20 13:00 02/10/20 05:46 Humulin R SUBQ Not Given Q6HR [facility] Protocol Metoprolol Tartrate 2.5 mg 02/08/20 19:00 02/10/20 06:37 Lopressor Inj IVP 2.5 mg Q6H [facility] Administration Prochlorperazine Edisylate 10 mg 02/08/20 13:54 02/08/20 19:07 Compazine Inj IVP 10 mg Q6HR PRN Administration Nausea / Vomiting Sodium Chloride 10 ml 02/08/20 13:54 02/08/20 19:20 Normal Saline Flush 0.9% IVP 10 ml PRN PRN Administration NEEDED PER PROVIDER ORDERS Sodium Chloride 10 ml 02/08/20 17:00 02/10/20 08:22 Normal Saline Flush 0.9% IVP 10 ml 0100,0900,1700 [facility] Administration - Physical Exam Comments/Other: AAO, NAD, obese male EOMI, MMM, no scleral icterus unlabored RA soft, nd, no significant ttp MAEW Impression/Plan - Problem List Problem List: 79yo M with acute cholecystitis and outlet obstruction - given high and rising TB as CT showing large impacted stone in infundibulum, pt has functional Miritizi's syndrome and needs surgery --> we discussed anticipated procedure and plan including slightly higher change of open procedure, subtotal resection, and higher change of common bile duct injury due to his disease process; he understands he may have a drain --> all other risks, benefits, and alternatives reviewed --> he understands, asks appropriate questions, and agrees to proceed - NPO, MIVFs - cont' IV abx as scheduled - if surgery goes well and pt doing well later will d/c home today
--- NOTE | 2020-02-10 10:16 | ANESTHESIA ---
Pre-Anesthesia VS, & Labs - Diagnosis Acute Cholecystitis - Procedure Lap Radha Vital Signs: Temp Pulse Resp BP Pulse Ox 36.6 C 64 18 152/72 H 97 02/10/20 07:48 02/10/20 07:48 02/10/20 07:48 02/10/20 07:48 02/10/20 07:48 Height 6 ft 5 in Weight (kg) 132.5 kg Body Mass Index 34.6 - NPO >8 hours - Lab Results Current Lab Results: Laboratory Tests 02/10/20 04:30: Sodium 143, Potassium 4.1, Chloride 113 H, Carbon Dioxide 24, Anion Gap 6.0, BUN 58 H, Creatinine 1.4 H, Estimated GFR (MDRD) 49 L, Glucose 139 H, Calcium 7.9 L, Total Bilirubin 2.7 H, AST 37, ALT 34, Alkaline Phosphatase 54, Total Protein 5.8 L, Albumin 2.7 L, Globulin 3.1, Albumin/Globulin Ratio 0.9 L 02/10/20 04:30: WBC 12.9 H, RBC 4.11 L, Hgb 13.1 L, Hct 39.5 L, MCV 96.1 H, MCH 31.9 H, MCHC 33.2, RDW 14.4, Plt Count 216, MPV 10.9, Neut # (Auto) 10.2 H, Lymph # (Auto) 1.4 L, [place] # (Auto) 0.9, Eos # (Auto) 0.2, Baso # (Auto) 0.1, Absolute Nucleated RBC 0.00, Nucleated RBC % 0.0 02/09/20 23:39: POC Whole Bld Glucose 125 H 02/09/20 17:46: POC Whole Bld Glucose 139 H 02/09/20 13:10: POC Whole Bld Glucose 140 H 02/09/20 04:48: Troponin I High Sens 15.3 02/09/20 04:48: Sodium 139, Potassium 3.5, Chloride 109, Carbon Dioxide 22, Anion Gap 8.0, BUN 89 H*, Creatinine 1.6 H, Estimated GFR (MDRD) 42 L, Glucose 151 H, Calcium 7.6 L, Total Bilirubin 2.5 H, AST 33, ALT 35, Alkaline Phosphatase 56, Total Protein 5.5 L, Albumin 2.5 L, Globulin 3.0, Albumin/Globulin Ratio 0.8 L, Amylase 63, Lipase 27 02/09/20 04:48: WBC 11.5 H, RBC 4.04 L, Hgb 13.5 L, Hct 38.0 L, MCV 94.1 H, MCH 33.4 H, MCHC 35.5, RDW 13.4, Plt Count 185, MPV 11.2, Neut # (Auto) 9.5 H, Lymph # (Auto) 1.1 L, [place] # (Auto) 0.8, Eos # (Auto) 0.1, Baso # (Auto) 0.0, Absolute Nucleated RBC 0.00, Nucleated RBC % 0.0 02/08/20 11:17: PT 14.7 H, INR 1.3 H 02/08/20 11:17: Troponin I High Sens 21.4 H* 02/08/20 11:17: Sodium 131 L, Potassium 3.3 L, Chloride 98 L, Carbon Dioxide 22, Anion Gap 11.0, BUN 98 H*, Creatinine 2.0 H, Estimated GFR (MDRD) 32 L, Glucose 210 H, Calcium 8.2 L, Total Bilirubin 2.2 H, AST 44 H, ALT 42, Alkaline Phosphatase 57, Total Protein 6.7, Albumin 3.2, Globulin 3.5, Albumin/Globulin Ratio 0.9 L, Lipase 28 02/08/20 11:17: WBC 13.0 H, RBC 4.62 L, Hgb 15.1, Hct 42.7, MCV 92.4, MCH 32.7 H , MCHC 35.4, RDW 13.5, Plt Count 192, MPV 11.5 H, Neut # (Auto) 10.6 H, Lymph # (Auto) 1.3 L, [place] # (Auto) 0.9, Eos # (Auto) 0.1, Baso # (Auto) 0.0, Absolute Nucleated RBC 0.00, Nucleated RBC % 0.0 Fish Bones: 02/10/20 04:30 02/10/20 04:30 Home Medications and Allergies Active Medications Famotidine (Pepcid) 20 mg IVP BID [facility] Last Admin: 02/10/20 08:22 Dose: 20 mg Hydromorphone HCl (Dilaudid Inj Syringe) 0.5 mg IVP Q2H PRN PRN Reason: Pain 8 to 10 Piperacillin Sod/Tazobactam (Sod 4.5 gm/ Sodium Chloride) 100 mls @ 200 mls/hr IV Q6H [facility] Last Infusion: 02/10/20 08:52 Dose: Infused Acetaminophen (Ofirmev) 100 mls @ 400 mls/hr IV Q6HR PRN PRN Reason: Pain or Fever > 38C (100.4F) Last Infusion: 02/08/20 19:08 Dose: Infused Potassium Chloride/Sodium Chloride (Normal Saline 0.9% W/40 Meq Kcl) 1,000 mls @ 125 mls/hr IV .Q8H [facility] Last Admin: 02/10/20 08:21 Dose: 125 mls/hr Promethazine HCl 25 mg/ Sodium (Chloride) 51 mls @ 100 mls/hr IV Q6H PRN PRN Reason: Nausea / Vomiting Insulin Human Regular (Humulin R) 1 - 5 unit SUBQ Q6HR [facility]; Protocol Last Admin: 02/10/20 05:46 Dose: Not Given Metoprolol Tartrate (Lopressor Inj) 2.5 mg IVP Q6H [facility] Last Admin: 02/10/20 06:37 Dose: 2.5 mg Prochlorperazine Edisylate (Compazine Inj) 10 mg IVP Q6HR PRN PRN Reason: Nausea / Vomiting Last Admin: 02/08/20 19:07 Dose: 10 mg Sodium Chloride (Normal Saline Flush 0.9%) 10 ml IVP PRN PRN PRN Reason: NEEDED PER PROVIDER ORDERS Last Admin: 02/08/20 19:20 Dose: 10 ml Sodium Chloride (Normal Saline Flush 0.9%) 10 ml IVP 0100,0900,1700 [facility] Last Admin: 02/10/20 08:22 Dose: 10 ml Atorvastatin Calcium [Lipitor] 40 mg PO QPM 10/27/13 carvediloL [Coreg] 25 mg PO BID 10/27/13 glipiZIDE [Glucotrol] 5 mg PO 0730,1630 10/27/13 Albuterol Sulfate [Proair Hfa Inhaler] 2 puffs INH Q4H PRN 08/08/18 Lisinopril/Hydrochlorothiazide [Lisinopril-Hctz 20-12.5 mg Tab] 1 tab PO DAILY 09/28/18 Allergies/Adverse Reactions: Allergies Allergy/AdvReac Type Severity Reaction Status Date / Time No Known Drug Allergies Allergy Verified 02/08/20 11:17 Anes History & Medical History - Anesthetic History Anesthesia Complications: reports: No previous complications Family history of Anesthesia Complications: Denies Family history of Malignant Hyperthermia: Denies - Medical History Cardiovascular: reports: Hypertension, High cholesterol, Coronary artery disease Pulmonary: reports: None Urinary: reports: None Neuro: reports: None Musculoskeletal: reports: Chronic back pain Endocrine/Autoimmune: reports: Type 2 diabetes Blood Disorders: reports: None Skin: reports: None Smoking Status: Never smoker Psychosocial: reports: No issues indicated - Surgical History General: Appendectomy, Hiatal hernia repair Cardiothoracic: Coronary stent Orthopedic: Spine surgery Exam General: Alert, Oriented x3, Cooperative, No acute distress Dental: Dentures full Upper, Dentures full Lower Mouth Openin Fingerbreadth Neck Mobility: Normal Mallampati classification: II Thyromental Distance: 4-6 cm Respiratory: Lungs clear, Normal breath sounds, No respiratory distress Cardiovascular: Regular rate, Normal S1, Normal S2, No murmurs Abdomen: Normal bowel sounds Extremities: No clubbing, No cyanosis, No edema, Normal pulses Neurological: Normal speech Mental/Cognitive Status: Alert/Oriented X3, Normal for patient, Alert, Oriented to name, Oriented to date, Oriented to time Cognitive Status: Within normal limits Plan Anesthesia Type: General Regional Block: Per Surgeon's request for Post Op pain control Consent for Procedure(s) Verified and Reviewed: Yes Code Status: Attempt Resuscitation ASA classification: 2-Mild systemic disease Is this case an emergency?: Yes
[2020-02-10] MEDS ORDERED: LIDOCAINE 1%-EPI 1:100000 20 ML MDV ONE (10:42)
[2020-02-10] MEDS ORDERED: LACTATED RINGERS 1,000 ML IV ONE ×2 (10:58→12:59)
[2020-02-10] MEDS ORDERED: LIDOCAINE 1%-EPI 1:100000 20 ML MDV SUBQ ONE (11:40)
[2020-02-10] MEDS ORDERED: IOTHALAMATE MEGLUMINE 50 ML VIAL ONE (12:25)
[2020-02-10] MEDS ORDERED: IOTHALAMATE MEGLUMINE 50 ML VIAL IVP ONE (12:33)
--- NOTE | 2020-02-10 15:27 | PROVIDER PROGRESS NOTE ---
Subjective - Prog Note Date Prog Note Date: 02/10/20 Prog Note Time: 16:28 - Subjective Subjective: went to the OR and is back. Current Medications - Current Medications Current Medications: Active Medications Famotidine (Pepcid) 20 mg IVP BID [facility] Last Admin: 02/10/20 08:22 Dose: 20 mg Hydromorphone HCl (Dilaudid Inj Syringe) 0.5 mg IVP Q2H PRN PRN Reason: Pain 8 to 10 Last Admin: 02/10/20 15:53 Dose: 0.5 mg Piperacillin Sod/Tazobactam (Sod 4.5 gm/ Sodium Chloride) 100 mls @ 200 mls/hr IV Q6H [facility] Last Admin: 02/10/20 15:40 Dose: Not Given Acetaminophen (Ofirmev) 100 mls @ 400 mls/hr IV Q6HR PRN PRN Reason: Pain or Fever > 38C (100.4F) Last Infusion: 02/08/20 19:08 Dose: Infused Potassium Chloride/Sodium Chloride (Normal Saline 0.9% W/40 Meq Kcl) 1,000 mls @ 125 mls/hr IV .Q8H [facility] Last Admin: 02/10/20 15:51 Dose: 125 mls/hr Promethazine HCl 25 mg/ Sodium (Chloride) 51 mls @ 100 mls/hr IV Q6H PRN PRN Reason: Nausea / Vomiting Insulin Human Regular (Humulin R) 1 - 5 unit SUBQ Q6HR [facility]; Protocol Last Admin: 02/10/20 15:39 Dose: Not Given Metoprolol Tartrate (Lopressor Inj) 2.5 mg IVP Q6H [facility] Last Admin: 02/10/20 15:38 Dose: Not Given Oxycodone HCl (Roxicodone) 5 mg PO Q4HR PRN PRN Reason: PAIN Prochlorperazine Edisylate (Compazine Inj) 10 mg IVP Q6HR PRN PRN Reason: Nausea / Vomiting Last Admin: 02/08/20 19:07 Dose: 10 mg Sodium Chloride (Normal Saline Flush 0.9%) 10 ml IVP PRN PRN PRN Reason: NEEDED PER PROVIDER ORDERS Last Admin: 02/08/20 19:20 Dose: 10 ml Sodium Chloride (Normal Saline Flush 0.9%) 10 ml IVP 0100,0900,1700 [facility] Last Admin: 02/10/20 15:50 Dose: 10 ml Atorvastatin Calcium [Lipitor] 40 mg PO QPM 10/27/13 carvediloL [Coreg] 25 mg PO BID 10/27/13 glipiZIDE [Glucotrol] 5 mg PO 0730,1630 10/27/13 Albuterol Sulfate [Proair Hfa Inhaler] 2 puffs INH Q4H PRN 08/08/18 Lisinopril/Hydrochlorothiazide [Lisinopril-Hctz 20-12.5 mg Tab] 1 tab PO DAILY 08/08/18 Objective - Vital Signs/Intake & Output Reviewed Vital Signs: Yes Vital Signs: Vital Signs x48h Temp Pulse Pulse Resp BP BP Pulse Ox 02/10/20 15:06 50 L 16 173/89 H 97 02/10/20 15:00 57 L 18 169/65 H 94 02/10/20 14:55 36.8 C 61 18 163/90 H 95 02/10/20 14:50 71 18 161/80 H 97 02/10/20 14:46 61 16 165/78 H 94 02/10/20 14:43 103 H 18 179/96 H 94 02/10/20 14:35 36.9 C 68 14 152/88 H 94 02/10/20 14:30 64 16 134/113 H 94 02/10/20 14:20 66 14 158/82 H 96 02/10/20 14:15 36.4 C L 60 16 160/77 H 96 02/10/20 14:11 62 16 141/71 H 97 02/10/20 07:48 36.6 C 64 18 152/72 H 97 Intake & Output: Intake & Output 02/07/20 02/08/20 02/09/20 02/10/20 23:59 23:59 23:59 23:59 Intake Total 2990.833 3104.167 1520.833 Output Total 1000 2325 950 Balance 1990.833 779.167 570.833 - Objective General Appearance: positive: Alert, Mild distress Eyes Bilateral: positive: PERRL ENT: positive: Pharynx nml Neck: positive: No JVD Respiratory: positive: Chest non-tender. negative: Wheezes, Rales, Rhonchi Cardiovascular: positive: Regular rate & rhythm. negative: Gallop/S4, Friction rub Abdomen: positive: Tenderness (over lap trochar sites and mild epigastric tenderness), Other (one borborygmi sound, distended). negative: Guarding, Rebound Skin: positive: Warm, Dry Extremities: positive: No pedal edema Neurologic/Psychiatric: positive: Oriented x3, CN's nml (2-12), Motor nml - Lab Results Fish Bones: 02/10/20 04:30 02/10/20 04:30 Other Labs: Lab Results x24hrs 02/10/20 02/10/20 02/10/20 Range/Units 14:48 04:30 04:30 WBC 12.9 H (4.8-10.8) x10^3/uL RBC 4.11 L (4.70-6.10) 10^6/uL Hgb 13.1 L (14.0-18.0) g/dL Hct 39.5 L (42.0-52.0) % MCV 96.1 H (80.0-94.0) fL MCH 31.9 H (27.0-31.0) pg MCHC 33.2 (32.0-36.0) g/dL RDW 14.4 (12.0-15.0) % Plt Count 216 (130-450) 10^3/uL MPV 10.9 (7.4-11.4) fL Neut # (Auto) 10.2 H (1.5-6.6) 10^3/uL Lymph # (Auto) 1.4 L (1.5-3.5) 10^3/uL Treasure # (Auto) 0.9 (0.0-1.0) 10^3/uL Eos # (Auto) 0.2 (0.0-0.7) 10^3/uL Baso # (Auto) 0.1 (0.0-0.1) 10^3/uL Absolute Nucleated RBC 0.00 x10^3/uL Nucleated RBC % 0.0 /100WBC Sodium 143 (135-145) mmol/L Potassium 4.1 (3.5-5.0) mmol/L Chloride 113 H (101-111) mmol/L Carbon Dioxide 24 (21-32) mmol/L Anion Gap 6.0 (6-13) BUN 58 H (6-20) mg/dL Creatinine 1.4 H (0.6-1.2) mg/dL Estimated GFR (MDRD) 49 L (>89) Glucose 139 H (70-100) mg/dL POC Whole Bld Glucose 154 H (70 - 100) mg/dL Calcium 7.9 L (8.5-10.3) mg/dL Total Bilirubin 2.7 H (0.2-1.0) mg/dL AST 37 (10-42) IU/L ALT 34 (10-60) IU/L Alkaline Phosphatase 54 (42-121) IU/L Total Protein 5.8 L (6.7-8.2) g/dL Albumin 2.7 L (3.2-5.5) g/dL Globulin 3.1 (2.1-4.2) g/dL Albumin/Globulin Ratio 0.9 L (1.0-2.2) 02/09/20 02/09/20 Range/Units 23:39 17:46 WBC (4.8-10.8) x10^3/uL RBC (4.70-6.10) 10^6/uL Hgb (14.0-18.0) g/dL Hct (42.0-52.0) % MCV (80.0-94.0) fL MCH (27.0-31.0) pg MCHC (32.0-36.0) g/dL RDW (12.0-15.0) % Plt Count (130-450) 10^3/uL MPV (7.4-11.4) fL Neut # (Auto) (1.5-6.6) 10^3/uL Lymph # (Auto) (1.5-3.5) 10^3/uL Treasure # (Auto) (0.0-1.0) 10^3/uL Eos # (Auto) (0.0-0.7) 10^3/uL Baso # (Auto) (0.0-0.1) 10^3/uL Absolute Nucleated RBC x10^3/uL Nucleated RBC % /100WBC Sodium (135-145) mmol/L Potassium (3.5-5.0) mmol/L Chloride (101-111) mmol/L Carbon Dioxide (21-32) mmol/L Anion Gap (6-13) BUN (6-20) mg/dL Creatinine (0.6-1.2) mg/dL Estimated GFR (MDRD) (>89) Glucose (70-100) mg/dL POC Whole Bld Glucose 125 H 139 H (70 - 100) mg/dL Calcium (8.5-10.3) mg/dL Total Bilirubin (0.2-1.0) mg/dL AST (10-42) IU/L ALT (10-60) IU/L Alkaline Phosphatase (42-121) IU/L Total Protein (6.7-8.2) g/dL Albumin (3.2-5.5) g/dL Globulin (2.1-4.2) g/dL Albumin/Globulin Ratio (1.0-2.2) ABX Reporting Has patient been on IV antibiotics over the past 48 hours?: Yes Assessment/Plan - Problem List (1) Cholecystitis Impression: 5 to 6 days of abdominal pain with nausea and vomiting and hiccups. Could not tolerate much food, having decreased p.o. intake and started feeling weak. So he came to the emergency room. He had hypoactive bowel sounds, and a CT showed cholecystitis as well as ileus. For the last 2 days minimal nausea. Minimal pain. Afebrile. Vitals stable. White cell count up from 13> 11.5>12.9 thousand. He was taken to the operating room where a severely gangrenous gallbladder was found. Friable and falling apart. They were unable to get the stone. Plan is to return to his room, continue antibiotics, and he may need to be transferred for an ERCP tomorrow. POD #0 Zosyn day #3 Plan: Clear liquid diet, keep on antibiotics. (2) Ileus Impression: last BM 02/05 and was passing flatus preop Plan is as above. (3) Preop cardiovascular exam Impression: His revised cardiac index score was 15% with 5 points on admission. Today his creatinine has come down. He is now down to 4 points but he still a class IV risk of 15%. NSQIP calculation, using geriatric outcomes, has him at a serious complication risk of 2%. Average risk is 2.2%. Any complication is 2.6% with average risk 2.8%. Cardiac complication is 0.1% with average risk 0.1%. He does have a 10.7% risk of functional decline. Overall he has slightly below average risk. (4) BERT (acute kidney injury) improving Impression: Baseline BUN is 25. Baseline creatinine is 1.2-1.4. With this admission: 98/2.0> 89/1.6>58/1.4 Due to poor po intake. Plan: Continue IV fluids for hydration (5) CAD (coronary artery disease) Impression: s/p stents 2018. Off plavix 12/2019. He was on atorvastatin. Not on an aspirin. Holding aspirin because of possible surgery. Resume atorvastatin postoperatively. Plan: Troponin 21.4 >15.3. no change. Once back on po resume meds. Qualifiers: Coronary Disease-Associated Artery/Lesion type: [place] artery (6) Diabetes mellitus Impression: On Glucotrol at home. Admitting random glucose was 210. Fasting glucose 151. January31: 139, 125 February 1: 133, 154 Plan: No change on sliding scale for n.p.o. status Qualifiers: Diabetes mellitus type: type 2 Diabetes mellitus skilled nursing insulin use: without skilled nursing use Diabetes mellitus complication status: without complication Qualified Code(s): E11.9 - Type 2 diabetes mellitus without complications (7) HTN (hypertension) Impression: on metoprolol IV and holding lisinopril. BP up today at 163-180 systolic. I would have resumed lisinopril IV but his BERT prohibits me. Add clonidine patch until his BP better. Qualifiers: Hypertension type: essential hypertension Qualified Code(s): I10 - Essential (primary) hypertension (8) DVT prophylaxis Impression: are SCDs but I have RN remove them when he gets out of bed to chair or bathroom.
[2020-02-10] MEDS: HYDROmorphone 0.5 MG/0.5 ML SYRINGE IVP PRN ×2 (15:53→17:49)
--- NOTE | 2020-02-10 16:02 | XRAY Report ---
Reason: gallstones Procedure Date: 02/10/2020 Accession Number: [id number] / [id number] Procedure: [place] - OR C-Arm Procedure CPT Code: Final Report FULL RESULT: EXAM: FLUOROSCOPIC GUIDANCE EXAM DATE: 02/10/2020 03:00 PM. CLINICAL HISTORY: Gallstones. COMPARISON: None. FINDINGS: Fluoroscopy for procedural guidance IMPRESSION: Fluoroscopic guidance provided for Dr. Quintana Total fluoroscopy time: 1 minute. Number of images: 0. RADIA
[2020-02-10] MEDS: ACETAMINOPHEN 1,000 MG/100 ML 100 ML IV PRN (16:33)
--- NOTE | 2020-02-10 16:38 | OPERATIVE REPORT ---
Operative Report - General Admit Date: 02/08/20 Pre-Op Diagnosis: 1. Cholecystitis 2. 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 Gangrenous Cholecystitis 2. same - Procedure Note Primary Surgeon: Jamey Giron MD Secondary Surgeon: Winston Sharma MD Anesthesia Provider: Juan Carlos Juarez MD Anesthesia Technique: General ET tube Pathology: gangrenous partial gallbladder IV Fluids (mL): 1,150 Estimated Blood Loss (mL): 50 Drain/Tube Type: Marc drain (19 Fr) Indications: 79yo M on third hospital day for findings of acute cholecystitis and large impacted gallstone with hyperbilirubinemia. He was treated with antibiotics due to COVID crisis and pain improved but his TB continued to rise and he maintained a mild leukocytosis. Concern for compression of common bile duct as well as non-resolving cholecystitis made decision for OR today. I explained given his pathology and expected inflammation and possible compression or erosion into the portal structures made me expect a more difficult and higher risk surgery. We discussed all risks, benefits, and alternatives and particularly discussed his higher chances of open procedure, bile leak, common duct involvement and injury, drain placement, possible subtotal resection, and need for further procedures. He understands, asks appropriate questions, and wishes to proceed. Findings: gangrenous liquification of gallbladder, extensive inflammation, unable to safely identify more proximal anatomy nor obstructing stone seen on CT Complications: subtotal resection due to advanced disease process making further dissection unsafe - Other Other Information/Narrative: The patient was taken to the operating room and placed on operating table in supine position. The abdomen was prepped and draped in sterile fashion and a time out is performed with the team present. Local anesthesia was used to infiltrate each site prior to incision. Using a 15- blade scalpel, a small 5 mm incision was made just to the right and a few centimeters above the umbilicus due to patient's long abdomen. Using a 5 mm Optiview camera port, the laparoscope was inserted into the abdomen. Once confirmed to be within the peritoneal cavity, the abdomen was insufflated with air. Initial diagnostic laparoscopy showed no injury from initial trocar placement. Three secondary trocars were then placed in the following locations: a 5mm trocar was then placed in the right lateral subcostal margin, a 5mm trocar in the right midclavicular line, and a 12 mm trocar was placed in the midline in the midepigastric area. The liver was placed high in the abdomen and visualization from the camera site was poor. A large heap of omentum is tented up and stuck to the front of the liver in the presumed area of the gallbladder. To improve visualization, the camera was moved to an upper port. Careful dissection was undertaken to remove the inflamed and thickened omentum to reveal the fundus of the gallbladder. It was dark green in color and grasping it revealed an attenuated wall consistent with liquifying necrosis; this immediately developed a hole from the grasper and bile spilled. It was cleared with the suction farm labor contractor. More tedious dissection was undertaken to expose the gallbladder further. The omentum is carefully stripped away but as progression was made the adherence of the acute on chronic inflammation tore at the gangrenous gallbladder in attempts to separate some areas. All exposed gallbladder is noted to be necrotic and and the hole in the fundus continually enlarges with necessary grasping despite attempts to handle this gently. After several centimeters of the gallbladder are exposed, further progress was stymied by the strong adherence of what is most likely omentum to the gallbladder wall but involved bowel cannot be ruled out as a smooth grayish pink plane on a circular structure was seen although some areas of omentum had a similar smoothing from the chronic inflammation. Minimal progress from that point is made removing the thin and friable gallbladder tissue from the thick and inflamed surrounding structures. Cholangiogram is called for to attempt to ascertain anatomy and depth to the involved stone. The cholangiogram catheter was inserted through a port and was introduced into the hole in the gallbladder. It was held with a grasper clamped over the surrounding tissue to attempt to minimize free flow but was ineffectual so was removed. While a ironer hand has not been needed to this point so the camera could be used in upper ports, a 10mm trocar is placed to the right of midline in the mid-upper abdomen and a 10mm scope used for improved lighting and visualization and to allow more maneuverability in the working ports. Realizing further progress would be minimal, options were reviewed including opening patient for completion procedure or focus on removal of stone with wide drainage. Importance was on the latter as he has a biliary outlet obstruction from the stone in his infundibulum. However, through this time the stone has not been seen nor palpated. I feel nothing solid, just firm and indurated tissue. The necrotic gallbladder, now with a large enough hole to look inside with the camera, came to a fibrotic and still-necrotic base with no clear outlet and no stone. My concern is converting to open with the field as it is may still not lead to a successful surgery and with further attempts at dissection in this highly inflamed state he is at high risk for injury to underlying portal structures and possibly duodenum as extent of underlying involvement is not clear. As a more minor consideration, during this COVID crisis subjecting this elderly patient to highly invasive surgery would necessitate more days in the hospital with risks of exposures and negative outcomes. While reviewing options, I asked my partner Dr. Mac Sharma to come to the OR to include his thoughts. He came in and while initially leaned towards opening with focus to extract stone, after scrubbing in and assessing tissue planes he agreed that further dissection, open or laparoscopic, was not a safe option and that drainage with post-operative ERCP and stent placement to relieve the obstruction was the optimal plan. The exposed gallbladder was removed with electrocautery and then passed off as a specimen to remove as much tissue as safely able. The right upper quadrant was irrigated thoroughly and suctioned free of any free fluid. A 19 Fr CHINEDU drain was passed into the abdomen and the end pulled through the most lateral port site. The intracorporal segment was placed along the remaining gallbladder segment. The external portion is cut to size, sutured to the skin with 3-0 silk, and a bulb to suction placed on the end. The fascia of the 10mm and 12mm port sites were re-approximated using an EndoClose device and an 0-vicryl suture. The secondary trocars were removed under direct vision noting no bleeding. The abdomen was allowed to desufflate fully once scrub nurse has stepped away to minimize exposures due to COVID risks. The final trocar was removed. The skin incisions were then re-approximated using 4-0 Monocryl in an interrupted subcuticular fashion. The abdomen was cleaned and dried and steri-strips were placed over each of the incisions. The patient was awakened and taken to the postanesthesia care unit in stable condition. All counts were correct at the end of the procedure. Dr. Sharma came in as an foundation assistant for a technically challenging case and to provide advice, he did not act as an independent surgeon in this procedure.
[2020-02-10] MEDS ORDERED: cloNIDine 0.2 MG PATCH TOP SCH (17:00)
[2020-02-10] MEDS ORDERED: fentaNYL 100 MCG/2 ML VIAL IVP ONE (17:49)
[2020-02-10] MEDS ORDERED: PROPOFOL 200 MG/20 ML VIAL IVP ONE (17:49)
[2020-02-10] MEDS ORDERED: NEOSTIGMINE 1 MG/1 ML 10 ML MDV IVP ONE (17:49)
[2020-02-10] MEDS ORDERED: ROCURONIUM 50 MG/5 ML VIAL IVP ONE (17:49)
[2020-02-10] MEDS ORDERED: GLYCOPYRROLATE 1 MG/5 ML VIAL IVP ONE (17:49)
[2020-02-10] MEDS: INSULIN ASPART 300 UNIT/3 ML PEN SUBQ SCH ×2 (18:17→21:44)
[2020-02-10] MEDS: cloNIDine 0.1 MG TABLET PO SCH (18:18)
[2020-02-10] MEDS: oxyCODONE 5 MG TABLET PO PRN (18:18)
[2020-02-10] MEDS ORDERED: ACETAMINOPHEN 325 MG TABLET PO PRN (22:00)
[2020-02-10] MEDS ORDERED: SODIUM CHLORIDE 0.9% 1,000 ML IV SCH (22:00)
[2020-02-11] MEDS: PROCHLORPERAZINE 10 MG/2 ML VIAL IVP PRN (00:19)
[2020-02-11] MEDS: SODIUM CHLORIDE FLUSH 0.9% 10 ML SYRINGE IVP SCH ×2 (00:22→08:29)
[2020-02-11] MEDS: METOPROLOL 5 MG/5 ML VIAL IVP SCH ×3 (00:30→13:18)
[2020-02-11] MEDS: HYDROmorphone 0.5 MG/0.5 ML SYRINGE IVP PRN (01:39)
[2020-02-11] MEDS: PIPERACILLIN/TAZOBACTAM 4.5 GM in SODIUM CHLORIDE 0.9% MINIBAG 100 ML IV SCH ×3 (01:41→13:18)
[2020-02-11 05:02] LABS: ALBUMIN 2.4 g/dL (3.2-5.5); ALBUMIN/GLOBULIN RATIO 0.8 (1.0-2.2); BILIRUBIN,TOTAL 2.3 mg/dL (0.2-1.0); CALCIUM 7.8 mg/dL (8.5-10.3); CREATININE 1.5 mg/dL (0.6-1.2); TOTAL PROTEIN 5.3 g/dL (6.7-8.2)
--- NOTE | 2020-02-11 08:20 | PROVIDER PROGRESS NOTE ---
Subjective - General Admit Date: 02/08/20 Procedure Date: 02/10/20 Post Op Days: 1 Procedure Performed: laparoscopic subtotal cholecystectomy - Review of Systems Drain Type: 19 Fr CHINEDU in RUQ Drain Output Description: serosanginous All Other Systems: positive: Reviewed and negative - Other Other Information/Narrative: Doing well, a bit sore but no significant pain or nausea. Has not taken much PO in since surgery. CHINEDU s/s. TB down minimally. Objective - Patient Data Reviewed Vital Signs: Yes Vital Signs: Vital Signs x48h Temp Pulse Resp BP BP Pulse Ox 02/11/20 08:04 36.5 C 69 20 152/70 H 97 02/11/20 06:39 152/68 H 02/11/20 04:23 36.8 C 63 16 158/78 H 96 02/11/20 00:30 59 L 134/64 H 94 Intake & Output: Intake and Output Totals x24h 02/09/20 02/10/20 02/11/20 23:59 23:59 23:59 Intake Total 3104.167 8996.147 7366.610 Output Total 2325 1385 935 Balance 779.167 235.833 588.610 - Lab Results Lab Results: 02/10/20 04:30 02/11/20 04:15 Other Lab Results: Lab Results x24hrs 02/11/20 02/11/20 02/10/20 Range/Units 08:03 04:15 21:05 Sodium 145 (135-145) mmol/L Potassium 4.7 (3.5-5.0) mmol/L Chloride 116 H (101-111) mmol/L Carbon Dioxide 23 (21-32) mmol/L Anion Gap 6.0 (6-13) BUN 49 H (6-20) mg/dL Creatinine 1.5 H (0.6-1.2) mg/dL Estimated GFR (MDRD) 45 L (>89) Glucose 161 H (70-100) mg/dL POC Whole Bld Glucose 122 H 188 H (70 - 100) mg/dL Calcium 7.8 L (8.5-10.3) mg/dL Total Bilirubin 2.3 H (0.2-1.0) mg/dL AST 42 (10-42) IU/L ALT 30 (10-60) IU/L Alkaline Phosphatase 59 (42-121) IU/L Total Protein 5.3 L (6.7-8.2) g/dL Albumin 2.4 L (3.2-5.5) g/dL Globulin 2.9 (2.1-4.2) g/dL Albumin/Globulin Ratio 0.8 L (1.0-2.2) 02/10/20 Range/Units 14:48 Sodium (135-145) mmol/L Potassium (3.5-5.0) mmol/L Chloride (101-111) mmol/L Carbon Dioxide (21-32) mmol/L Anion Gap (6-13) BUN (6-20) mg/dL Creatinine (0.6-1.2) mg/dL Estimated GFR (MDRD) (>89) Glucose (70-100) mg/dL POC Whole Bld Glucose 154 H (70 - 100) mg/dL Calcium (8.5-10.3) mg/dL Total Bilirubin (0.2-1.0) mg/dL AST (10-42) IU/L ALT (10-60) IU/L Alkaline Phosphatase (42-121) IU/L Total Protein (6.7-8.2) g/dL Albumin (3.2-5.5) g/dL Globulin (2.1-4.2) g/dL Albumin/Globulin Ratio (1.0-2.2) - Current Medications Current Medications: Current Medications Generic Name Dose Route Start Last Admin Trade Name Freq PRN Reason Stop Dose Admin Clonidine HCl 0.1 mg 02/10/20 17:30 02/10/20 18:18 Catapres PO 0.1 mg BID [facility] Administration Famotidine 20 mg 02/08/20 21:00 02/10/20 20:02 Pepcid IVP 20 mg BID [facility] Administration Hydromorphone HCl 0.5 mg 02/08/20 13:54 02/11/20 01:39 Dilaudid Inj Syringe IVP 0.5 mg Q2H PRN Administration Pain 8 to 10 Piperacillin Sod/Tazobactam 100 mls @ 200 mls/hr 02/08/20 20:00 02/11/20 02:11 Sod 4.5 gm/ Sodium Chloride IV Infused Q6H [facility] Infusion Sodium Chloride 1,000 mls @ 83.333 mls/hr 02/10/20 22:00 02/11/20 05:11 Normal Saline 0.9% IV 83.333 mls/hr .Q12H [facility] Infusion Insulin Aspart 1 - 5 unit 02/10/20 18:30 02/10/20 21:44 Novolog SUBQ 2 unit 0800,1200,1700,2100 [facility] Administration Protocol Metoprolol Tartrate 2.5 mg 02/08/20 19:00 02/11/20 06:39 Lopressor Inj IVP 2.5 mg Q6H [facility] Administration Oxycodone HCl 5 mg 02/10/20 14:54 02/10/20 18:18 Roxicodone PO 5 mg Q4HR PRN Administration PAIN Prochlorperazine Edisylate 10 mg 02/08/20 13:54 02/11/20 00:19 Compazine Inj IVP 10 mg Q6HR PRN Administration Nausea / Vomiting Sodium Chloride 10 ml 02/08/20 13:54 02/08/20 19:20 Normal Saline Flush 0.9% IVP 10 ml PRN PRN Administration NEEDED PER PROVIDER ORDERS Sodium Chloride 10 ml 02/08/20 17:00 02/11/20 00:22 Normal Saline Flush 0.9% IVP 10 ml 0100,0900,1700 [facility] Administration - Physical Exam Comments/Other: AAO, NAD, obese male EOMI, MMM, no scleral icterus hard of hearing without hearing aids unlabored RA soft, ND, inc c/d/i, CHINEDU s/s output MAEW Impression/Plan - Problem List Problem List: - s/p lap subtotal cholecystectomy, gallbladder completely gangrenous with liquified necrosis, significant inflammation led to inability to safely proceed and stone unable to be identified to remove --> drain left, no bile --> needs ERCP for CBD stent due to external compression from large infundibulum stone, ok for outpatient close follow up if able to tolerate PO --> cont' antibiotics for now --> ambulate, SCDs --> pt lives alone but has family who want him to stay with them for a few days which would be helpful although any new contacts concerning in COVID times --> FU next week for drain output, needs teaching to strip and drain daily
[2020-02-11] MEDS: INSULIN ASPART 300 UNIT/3 ML PEN SUBQ SCH ×2 (08:28→12:04)
[2020-02-11] MEDS: FAMOTIDINE 20 MG/2 ML VIAL IVP SCH (08:29)
[2020-02-11] MEDS: cloNIDine 0.1 MG TABLET PO SCH (08:29)
--- NOTE | 2020-02-11 09:59 | PHARMACY PROGRESS NOTE ---
- Best Possible Medication History Admit Date and Time: 02/08/20 1342 Processed by: Pharmacy Medication History completed: Yes Patient Interview: Completed Secondary Source(s): Insurance records As the person ultimately responsible for medication therapy, providers are able to order a medication from an existing home medication list in [facility] via the "Reconcile Routine" prior to Confirmation of that medication by business support assistant. Such practice is discouraged except when the physician, in their clinical judgment, deems that a medical need exists for a medication without regard to previous use.
[2020-02-11 13:17] VITALS: BP 144/77
[2020-02-11] MEDS: oxyCODONE 5 MG TABLET PO PRN (13:24)
--- NOTE | 2020-02-11 13:58 | Discharge Plan ---
Discharge Plan Problem Reviewed?: Yes Disposition: 02 Transfer Acute Care Hosp Condition: Stable No Smoking: If you smoke, Please STOP! Call for help. Follow-up with: Jordin Wheeler MD [Primary Care Provider] -
--- NOTE | 2020-02-11 13:59 | DISCHARGE SUMMARY ---
"Discharge Summary Admit Date: 02/08/20 Discharge Date: 02/11/20 Discharging Provider: Ruthie Murphy MD Primary Care Provider: Jordin Wheeler MD Code Status: Attempt Resuscitation Condition at Discharge: Stable Discharge Disposition: 02 Transfer Acute Care Hosp Discharge Facility [facility]: [facility] - DIAGNOSES Discharge Diagnoses with Status of Each Condition: 1. Acute cholecystitis with gangrene 2. Ileus 3. Preop cardiovascular exam showing revised cardiac index score 15% with 5 points on admission. 4 points the next day but still class IV. NSQIP calculation using geriatric outcomes had a serious complication risk of 2% (Average risk is 2.2%). Cardiac complication was anticipated at 0.1%. 4. Acute kidney injury due to dehydration 5. Coronary artery disease of [place] artery 6. Type 2 diabetes mellitus, controlled, without complications, not on long- term insulin 7. Hypertension - HPI History of Present Illness: 79-year-old white male with a history of hyperlipidemia, chronic kidney disease, coronary artery disease with stenting done 1 year ago that had just been off his Plavix for a month. He presents with 5 to 6 days of abdominal pain with nausea and vomiting and nonstop hiccups. He had no tolerance of his regular diet and had such minimal intake that he was starting to feel very weak, fatigued and so he came to the emergency room. In the emergency room he was afebrile, had an elevated white cell count. He had diminished bowel sounds and his CT showed cholecystitis as well as ileus. Temperature was 36.4, heart rate in the 80s to 90s with sinus rhythm, blood pressure 128/90 and room air sat is 98%. Distended abdomen with hypertympanic palpation. Soft. No rebound or guarding. - CONSULTS | PROCEDURES Consultations: General surgery, Dr. Stacy Cook and Dr. Mello Tabler Procedures: 1. Abdomen/pelvis CT. Elevated right high hemidiaphragm. Right middle and right lower lobe atelectasis with scarring. Small hiatal hernia. Liver images are unremarkable. Distended gallbladder with pericholecystic edema and gallbladder wall thickening. Gallstone present within the gallbladder neck measuring up to 2.3 cm. 2. Laparoscopic subtotal cholecystectomy with attempted cholangiogram. February 10, 2020. Findings were that of gangrenous cholecystitis, gallstone in the in fundibulum, extrinsic pressure on common bile duct from gallstone. - HOSPITAL COURSE Hospital Course: The patient was placed on IV antibiotics. Specifically Zosyn as we waited to see if his white cell count would go down or his fever would return. White cell count on admission was 13,000 and went down to 11.5. Admission bilirubin was 2.2 and AST was mildly elevated to 44. Because of his cardiac history a troponin was done and high-sensitivity troponin was initially 21.4 but repeat troponin was 15.[address]-T wave changes on EKG. Amylase and lipase were normal. Was also noted on admission labs was acute kidney injury with a BUN of 98 and a creatinine of 2.0. After antibiotics and IV fluids, the patient was seen by general surgery who felt that he was a candidate for laparoscopic cholecystectomy. On the day of surgery BUN is 58 creatinine 1.4 and bilirubin 2.7. White cell count was still elevated at 12.9. From the time of admission the patient had no other fevers. He was taken to the operating room where the gallbladder was found to be intensely friable, and a subtotal cholecystectomy was done. The gallstone was in the infundibulum and unable to be retrieved. Visibility showed the gallstone was compressing the common bile duct. Intra-Op cholangiogram could not be done. On postop day #1, general surgery advance diet to clear liquids which he tolerated well. He had minimal pain, normal vital signs, no fever. General surgery felt that the patient could have an ERCP in the outpatient setting. In my attempt to set that up I spoke to GI applications engineer manufacturing for [facility]. They felt that the patient should have an ERCP now, not later. But they also stated they could not take care of such a complicated case and asked me to call Sommer Hernadez. I spoke to Sommer Hernadez who also stated that the patient needed an ERCP now, but they also felt that patient was too complicated for them as well and asked me to call Yasmine Henry. I spoke to Yasmine Henry hospitalist, Dr. Kathi Szymanski. Her colleagues of general surgery and GI reviewed the CT films and felt the patient was appropriate for their institution. During his stay the patient was comfortable. Not in acute pain. The only pain he had was mainly at the incision site. He was ambulating in the room without any assistance. Tolerating his clear liquids before transfer quite well. He is an alert, oriented white male at 65 inches tall who weighs 132 kg. Phoebe personality. Temperature is 36.6, pulse is 73, blood pressure 144/77. Respirations 18 and 97% on room air. He has clear lungs, no respiratory distress. No increased respiratory effort. PMI normally placed with a regular rate and rhythm. And abdomen that is still slightly distended but soft, and minimal tenderness in the right upper quadrant. No rebound or guarding. Extremities are warm without clubbing cyanosis or edema. At the time of discharge BUN is 49 creatinine is 1.5. Random glucose is 122. He required sliding scale insulin for control of his glucose. At home he is on Glucotrol and that was not continued during his stay. He is transferred in stable condition. Greater than 30 minutes was spent coordinating discharge. - ALLERGIES Allergies/Adverse Reactions: Allergies Allergy/AdvReac Type Severity Reaction Status Date / Time No Known Drug Allergies Allergy Verified 02/08/20 11:17 - MEDICATIONS Home Medications: Ambulatory Orders Medication Instructions Recorded Confirmed Atorvastatin Calcium [Lipitor] 40 mg PO QPM 10/27/13 02/11/20 carvediloL [Coreg] 25 mg PO BID 10/27/13 02/11/20 glipiZIDE [Glucotrol] 5 mg PO BID 10/27/13 02/11/20 Lisinopril/Hydrochlorothiazide 1 tab PO DAILY 08/08/18 02/11/20 [Lisinopril-Hctz 20-12.5 mg Tab] Aspirin [Aspirin EC] 81 mg PO .EVERYOTHERDAY 02/11/20 02/11/20 Latanoprost 0.005% Ophth Drops 1 drops LEFTEYE DAILY 02/11/20 02/11/20 [Xalatan Ophth Drops] Timolol 0.5% Ophth Drops [Timoptic 1 drops LEFTEYE BID 02/11/20 02/11/20 0.5% Ophth Drops] - LABS Result Diagrams: 02/10/20 04:30 02/11/20 04:15"
== END 2020-02-11 16:40 | disposition short-term general hospital (02) | DRG 418 ==
LOC: ED 11:02 → MS2 13:42 → MS3 14:20
PROVIDERS: ADMIT Internal Medicine; ATTEND Specialist
PROC: 0FT44ZZ Resection of Gallbladder, Percutaneous Endoscopic Approach (ICD-10-PCS; principal; 2020-02-10 10:00)
DX: K80.10 Calculus of gallbladder with chronic cholecystitis without obstruction (principal); K80.01 Calculus of gallbladder with acute cholecystitis with obstruction; N17.9 Acute kidney failure, unspecified; K56.7 Ileus, unspecified; E78.00 Pure hypercholesterolemia, unspecified; E87.1 Hypo-osmolality and hyponatremia; K82.A1 Gangrene of gallbladder in cholecystitis; I10 Essential (primary) hypertension; E11.22 Type 2 diabetes mellitus with diabetic chronic kidney disease; I12.9 Hypertensive chronic kidney disease with stage 1 through stage 4 chronic kidney disease, or unspecified chronic kidney disease; N18.9 Chronic kidney disease, unspecified; E86.0 Dehydration; E87.6 Hypokalemia; I25.10 Atherosclerotic heart disease of native coronary artery without angina pectoris; E78.5 Hyperlipidemia, unspecified; K57.30 Diverticulosis of large intestine without perforation or abscess without bleeding; H40.9 Unspecified glaucoma; Z79.84 Long term (current) use of oral hypoglycemic drugs; Z79.51 Long term (current) use of inhaled steroids; Z79.899 Other long term (current) drug therapy; Z95.5 Presence of coronary angioplasty implant and graft
CPT/HCPCS: 36415; 74176; 80053; 81003; 82150; 83690; 84484; 85025; 85610; 93005; 96361; 96374; 99285; A9270; J0131; J1170; J2060; J2765; J7120; Q9961; 81001; 87086

== ENCOUNTER 2020-03-04 07:46 | Outpatient (CLI) | payer MEDICARE, OTHER | END 2020-03-04 07:47 | disposition home or self-care (01) | LOC: DI 07:46 | PROVIDERS: ATTEND Internal Medicine | DX: I25.10 Atherosclerotic heart disease of native coronary artery without angina pectoris (principal); I27.20 Pulmonary hypertension, unspecified; R60.0 Localized edema; J44.9 Chronic obstructive pulmonary disease, unspecified; I51.7 Cardiomegaly | CPT/HCPCS: 93306 ==

== ENCOUNTER 2020-03-15 19:06 | Emergency (ER) | payer MEDICARE, OTHER ==
[2020-03-15 19:15] VITALS: BP 131/74
--- NOTE | 2020-03-15 19:15 | ED Physician Documentation ---
PD HPI Fall - Stated complaint Stated Complaint: HEAD,L ARM/HAND INJURY - Chief complaint Chief Complaint: Trauma Hd/Nk - History obtained from History obtained from: Patient - History of Present Illness Mechanism of injury: Lost balance Fall distance: Less than 5ft Where injury occurred: Street Timing - onset: Enter time (18:00), Today Injury(ies) location: Head, Left Uppper Extremity Pain level now: 3 Quality of pain: Pain Associated symptoms: No: LOC, AMS, Amnesia, Neck pain, Weakness, Paresthesias Contributing factors: No: Anticoagulated, Intoxicated Similar symptoms before: Has not had sx before Recently seen: Not recently seen - Additional information Additional information: patient fell off his trailer, landed on [place]. This occurred at approximately 6 PM today. Denies LOC, denies n/v. c/o headache and head injury, as well as skin tears of left elbow and left hand Review of Systems Eyes: denies: Loss of vision, Decreased vision Skin: reports: Abrasion (s) (forehead), Laceration (s) (skin tears left elbow, left hand) Musculoskeletal: denies: Neck pain, Back pain, Extremity pain, Joint pain, Extremity swelling Neurologic: reports: Headache, Head injury. denies: Generalized weakness, Focal weakness, Numbness, Near syncope, Syncope, Confused, Altered mental status, LOC PD PAST MEDICAL HISTORY - Past Medical History Cardiovascular: Hypertension, High cholesterol, Coronary artery disease Respiratory: None Neuro: None Endocrine/Autoimmune: Type 2 diabetes : None HEENT: Glaucoma Musculoskeletal: Chronic back pain Derm: None - Past Surgical History Past Surgical History: Yes General: Appendectomy, Hiatal hernia repair Ortho: Spine surgery Cardiovascular: Coronary stent - Present Medications Home Medications: Ambulatory Orders Medication Instructions Recorded Confirmed Atorvastatin Calcium [Lipitor] 40 mg PO QPM 10/27/13 02/11/20 carvediloL [Coreg] 25 mg PO BID 10/27/13 02/11/20 glipiZIDE [Glucotrol] 5 mg PO BID 10/27/13 02/11/20 Lisinopril/Hydrochlorothiazide 1 tab PO DAILY 08/08/18 02/11/20 [Lisinopril-Hctz 20-12.5 mg Tab] Aspirin [Aspirin EC] 81 mg PO .EVERYOTHERDAY 04/02/20 04/02/20 Latanoprost 0.005% Ophth Drops 1 drops LEFTEYE DAILY 02/11/20 02/11/20 [Xalatan Ophth Drops] Timolol 0.5% Ophth Drops [Timoptic 1 drops LEFTEYE BID 02/11/20 02/11/20 0.5% Ophth Drops] - Allergies Allergies/Adverse Reactions: Allergies Allergy/AdvReac Type Severity Reaction Status Date / Time No Known Drug Allergies Allergy Verified 03/15/20 19:11 - Social History Does the pt smoke?: No Smoking Status: Never smoker Does the pt drink ETOH?: No Does the pt have substance abuse?: No - Immunizations Immunizations are current?: Yes - POLST Patient has POLST: No POLST Status: Full Code PD ED PE NORMAL - Vitals Vital signs reviewed: Yes - General General: Alert and oriented X 3, No acute distress, Well developed/nourished - HEENT HEENT: PERRL, EOMI - Neck Neck: No bony TTP - Cardiac Cardiac: RRR, No murmur - Respiratory Respiratory: No respiratory distress, Clear bilaterally - Back Back: No spinal TTP - Extremities Extremities: No tenderness to palpate, Normal ROM s pain, No edema - Neuro Neuro: Alert and oriented X 3, doper operator 2-12 intact, No motor deficit, No sensory deficit, Normal speech Eye Opening: Spontaneous Motor: Obeys Commands Verbal: Oriented GCS Score: 15 PD ED PE EXPANDED - HEENT HEENT Visual: 1 - abrasion, tenderness - Extremities VICTOR HUGO UE/Hands Visual: 1 - laceration (skin tear without bony tenderness) 2 - laceration (skin tear without bony tenderness) Results - Vitals Vitals: Vital Signs - 24 hr 03/15/20 19:11 Temperature 36.5 C Heart Rate 90 Respiratory 16 Rate Blood Pressure 131/74 H O2 Saturation 98 Oxygen O2 Source Room air - Rads (name of study) [facility] Radiology: Prelim report reviewed, See rad report PD MEDICAL DECISION MAKING - ED course Complexity details: reviewed results, re-evaluated patient, considered differential, d/w patient Departure - Departure Disposition: 01 Home, Self Care Clinical Impression: Skin tear of left upper extremity Fall Qualifiers: Encounter type: initial encounter Qualified Code(s): W19.XXXA - Unspecified fall, initial encounter Scalp abrasion Qualifiers: Encounter type: initial encounter Qualified Code(s): S00.01XA - Abrasion of scalp, initial encounter Condition: Good Instructions: ED Abrasion, ED Avulsion Dermal Discharge Date/Time: 03/15/20 20:37
[2020-03-15] MEDS ORDERED: BACITRACIN ZINC OINT 1 PACKET TOP STA (19:26)
[2020-03-15] MEDS ORDERED: BACITRACIN ZINC OINT 1 PACKET TOP ONE (19:40)
--- NOTE | 2020-03-15 19:56 | CT Report ---
Reason: fall, head injury Procedure Date: 03/15/2020 Accession Number: [id number] / [id number] Procedure: CT - HEAD WO CPT Code: Final Report FULL RESULT: EXAM: CT HEAD EXAM DATE: 03/15/2020 07:48 PM. CLINICAL HISTORY: Fall, head injury. COMPARISON: HEAD WO 03/15/2020 7:37 PM HEAD W/O 09/11/2015 9:42 PM. TECHNIQUE: Multiaxial CT images were obtained from the foramen magnum to the vertex. Reformats: Sagittal and coronal. IV contrast: None. In accordance with CT protocol optimization, one or more of the following dose reduction techniques were utilized for this exam: automated exposure control, adjustment of mA and/or KV based on patient size, or use of iterative reconstructive technique. FINDINGS: Parenchyma: No intraparenchymal hemorrhage. No evidence of mass, midline shift, or CT findings of infarction. Rico-white differentiation is distinct. Extraaxial Spaces: Normal for age. No subdural or epidural collections identified. Ventricles: Normal in size and position. Sinuses and Orbits: Imaged paranasal sinuses, orbits, and mastoids show no significant abnormality. Bones: No evidence of fracture or calvarial defect. Other: None. IMPRESSION: Negative nonenhanced head CT. RADIA
== END 2020-03-15 20:37 | disposition home or self-care (01) ==
LOC: ED 19:06
DX: S51.012A Laceration without foreign body of left elbow, initial encounter (principal); S61.412A Laceration without foreign body of left hand, initial encounter; S00.01XA Abrasion of scalp, initial encounter; W17.89XA Other fall from one level to another, initial encounter; Y93.89 Activity, other specified; Y92.410 Unspecified street and highway as the place of occurrence of the external cause; E11.9 Type 2 diabetes mellitus without complications; Z79.84 Long term (current) use of oral hypoglycemic drugs; I10 Essential (primary) hypertension; Z79.82 Long term (current) use of aspirin
CPT/HCPCS: 70450; 99284; A9270

== ENCOUNTER 2022-03-14 08:00 | Outpatient (CLI) | payer MEDICARE, OTHER ==
--- NOTE | 2022-03-14 16:07 | XRAY Report ---
PROCEDURE: Knee 2 View LT INDICATIONS: ARTHRITIS, L KNEE TECHNIQUE: 2 views of the left knee(s) were acquired. COMPARISON: None. FINDINGS: Bones: No fractures or dislocations. No suspicious bony lesions. There is moderate tricompartmenta l arthritic change. Periarticular osteophytes are present. No erosions. Soft tissues: No joint effusion. No suspicious soft tissue calcifications. IMPRESSION: Tricompartmental arthritic change as above. Reviewed by: Angela Briggs MD on 03/14/2022 3:05 PM VITA Approved by: Angela Briggs MD on 03/14/2022 3:05 PM VITA Station ID: [id number]
== END 2022-03-14 23:59 | disposition home or self-care (01) ==
LOC: DI.N 08:00
PROVIDERS: ATTEND Family Medicine
DX: M17.12 Unilateral primary osteoarthritis, left knee (principal)

== ENCOUNTER 2022-05-17 08:00 | Outpatient (CLI) | payer MEDICARE, OTHER ==
--- NOTE | 2022-05-17 13:05 | XRAY Report ---
PROCEDURE: Knee 3 View LT INDICATIONS: KNEE PX TECHNIQUE: 3 views of the left knee(s) were acquired. COMPARISON: None. FINDINGS: Bones: No fractures or dislocations. No suspicious bony lesions. There is moderate left femorotibi al compartment narrowing and small tricompartmental osteophytes. Soft tissues: No joint effusion. No suspicious soft tissue calcifications. IMPRESSION: Mild left knee osteoarthritis. Reviewed by: Teresa So MD on 05/17/2022 1:04 PM PDT Approved by: Teresa So MD on 05/17/2022 1:04 PM PDT Station ID: [id number]
== END 2022-05-17 23:59 | disposition home or self-care (01) ==
LOC: DI.WOS 08:00
PROVIDERS: ATTEND Orthopaedic Surgery
DX: M17.12 Unilateral primary osteoarthritis, left knee (principal)

== ENCOUNTER 2023-11-10 09:41 | Outpatient (CLI) | payer MEDICARE, OTHER ==
--- NOTE | 2023-11-10 12:45 | Ultrasound Report ---
PROCEDURE: Bladder INDICATIONS: UNSP SYMPTOMS AND SIGNS INVOLVING THE GENITOURINAR TECHNIQUE: Real-time scanning was performed of the kidneys and bladder, with image documentation. COMPARISON: CT abdomen and pelvis on February 08, 2020 FINDINGS: Bladder: Pre-void bladder volume is 322 mL. Post-void residual is 233 mL. Pre-void images demonstr ate no intraluminal masses or stones. On pre-void images, right ureteral jet is seen with color Dopp ler interrogation. (Of note, ureteral jets may not be detectable in up to 25% of cases due to insuff icient differences in specific gravity between ureteral and bladder urine). Miscellaneous: No free pelvic fluid. Prostate measures 6.9 x 6.5 x 7.1 cm with volume of 168 mL. IMPRESSION: 1.Increased post void residual of 233 mL likely secondary to chronic bladder outlet obstruction. 2.Prostatomegaly with volume of 168 mL. Reviewed by: Mery Fierro MD on 11/10/2023 12:44 PM PST Approved by: Mery Fierro MD on 11/10/2023 12:44 PM PST Station ID: [id number]
== END 2023-11-10 09:42 | disposition home or self-care (01) ==
LOC: DI 09:41
PROVIDERS: ATTEND Internal Medicine
DX: N40.1 Benign prostatic hyperplasia with lower urinary tract symptoms (principal); R33.8 Other retention of urine